=== PATIENT | female | born 1945 | race Caucasian/White ===

== ENCOUNTER 2020-10-20 20:56 | Inpatient (IN) | payer MEDICARE, OTHER, SELFPAY ==
[2020-10-20 21:12] VITALS: BP 120/50; PULSE 101; RESP 22; TEMP 38.9; O2SAT 86; BMI 33.7
--- NOTE | 2020-10-20 21:13 | XR_ITS ---
EXAMINATION: XR CHEST CLINICAL INFORMATION: Shortness of breath. COVID positive. COMPARISON: Chest radiograph dated 03/30/2015. TECHNIQUE: Frontal view of the chest was obtained. FINDINGS: Mild interstitial prominence with minimal patchy left lower lobe airspace opacities. No pleural effusion or pneumothorax. Stable cardiomediastinal silhouette. No acute osseous abnormality. XR/XR chest 1V IMPRESSION: Mild interstitial prominence with minimal patchy left lower lobe airspace opacities. Findings can be seen in the setting of an infectious or inflammatory process.
--- NOTE | 2020-10-20 21:13 | ECG_ITS ---
Test Reason : SHORTNESS OF BREATH Blood Pressure : / mmHG Vent. Rate : 096 BPM Atrial Rate : 096 BPM P-R Int : 134 ms QRS Dur : 082 ms QT Int : 326 ms P-R-T Axes : 046 027 042 degrees QTc Int : 411 ms Normal sinus rhythm Normal ECG No previous ECGs available Referred By: [place] [facility] Electronically Signed By:RICHARD RUBIO
--- NOTE | 2020-10-20 21:13 | ED.SOB ---
HPI - SOB/Dyspnea General Chief Complaint: Dyspnea Stated Complaint: Sob Time Seen by Provider: 10/20/20 21:12 Source: patient Mode of arrival: ambulatory Limitations: no limitations History of Present Illness HPI Narrative: Patient with no significant lung issues nonsmoker for COVID positive for last 8 days since yesterday been complaining of increased shortness of breath today when she walks her pulse ox dropped to low 80s called her primary care doctor who sent her here. Patient not eating well for last few days feel weak and tired occasional cough no abdominal pain no nausea no vomiting no diarrhea had fever off and on at home on arrival patient temperature was 102.1 degrees and saturation was 86% on room air MD elicited complaint: shortness of breath and cough Onset (ago): day(s) (8) Timing: constant and progressively worsening Severity: moderate Exacerbating factors: exertion Relieving factors: oxygen Associated symptoms: fever and cough Related Data Home Medications Medication Instructions Recorded Confirmed aspirin 1 tab PO BID 10/21/20 10/21/20 levothyroxine 1 tab PO BEDTIME 10/21/20 10/21/20 liothyronine 1 tab PO DAILY 10/21/20 10/21/20 pantoprazole 1 tab PO DAILY 10/21/20 10/21/20 Allergies Allergy/AdvReac Type Severity Reaction Status Date / Time No Known Drug Allergies Allergy Unknown UNKNOWN Unverified 07/26/20 18:53 Review of Systems Review of Systems: REVIEW OF SYSTEMS: Pertinent positives and negatives are stated above in the history. GEN: fver+. no chills, fatigue ++ HEENT: no nasal congestion, sore throat, ear pain NEURO: no headache, dizziness, focal weakness PULM: Cough +, shortness of breath + CV: no chest pain, palpitations, LE edema ABD: no abdominal pain, nausea, vomiting, diarrhea : no dysuria, urgency, frequency SKIN: no rash ROS otherwise negative x 10 PMFSH Past Medical History Medical History Hypothyroid Surgical History History of appendectomy S/P hip replacement Social History Social History Alcohol intake: never Smoking Status: Never smoker Use of substances other than those prescribed or required for medical reasons: No Advance Directives: No Advance Directives Information Provided: No Physical Exam Vital Signs: Vital Signs: Last Vital Signs Temp 100.8 F H 10/21/20 00:35 Pulse 88 10/21/20 00:35 Resp 21 H 10/21/20 00:35 BP 102/37 L 10/21/20 00:35 Pulse Ox 94 10/21/20 00:35 Body Mass Index 33.7 VITAL SIGNS: Reviewed. GENERAL: Well developed, well nourished, in no acute distress. Febrile temperature of 102.1 degrees HEAD: Normocephalic/atraumatic, EYES: PERRLA No pallor/icterus noted OROPHARYNX: Oral mucosa moist no oral lesions NECK: Supple, no adenopathy LUNGS: Normal breath sounds. No adventitious sounds or accessory muscle use CARDIOVASCULAR: Regular rate and rhythm without noted murmurs, no JVD or lower extremity edema. ABDOMEN: Soft, non-tender, non-distended with normal bowel sounds. No rigidity. No guarding. No palpable masses or hernias noted MUSCULOSKELETAL: No tenderness, deformities, EXTREMITIES: No cyanosis or edema. SKIN: no rashes, ulcerations, jaundice, pallor, or petechiae NEUROLOGIC: Alert and oriented x 3. Strength and sensation to light touch were grossly intact normal speech MDM - SOB/Dyspnea MDM Narrative Medical decision making narrative: Patient COVID positive day 8 coming here for increased shortness of breath saturating 86% on room air chest x-ray showed slight infiltrates patient had a fever of 102.1 will admit patient for IV steroids oxygen therapy and will give a pedicle course of antibiotic Rocephin and doxycycline Medical Records Attestation: I reviewed the patient's medical records. Lab Data Attestation: I reviewed the patient's lab results. Result diagrams: 10/20/20 22:10 10/20/20 22:10 Labs: Lab Results 10/20/20 10/20/20 10/20/20 Range/Units 22:09 22:09 22:09 WBC (4.8-10.8) X10*3/uL RBC (4.20-5.50) X10*6/uL Hgb (12.0-16.0) g/dl Hct (37-47) % MCV (80-98) fL MCH (27.0-33.0) pg MCHC (31.0-35.0) g/dl RDW (11.0-16.0) % Plt Count (160-400) X10*3/uL MPV (9.4-12.3) fL Immature Gran % (Auto) (0.0-0.4) % Neut % (Auto) (45-73) % Lymph % (Auto) (20-40) % [place] % (Auto) (2-11) % Eos % (Auto) (0-4) % Baso % (Auto) (0-2) % Lymph # (Auto) (1.2-4.9) X10*3/uL [place] # (Auto) (0.1-1.2) X10*3/uL Eos # (Auto) (0.0-0.4) X10*3/uL Baso # (Auto) (0.0-0.2) X10*3/uL Abs Immat Gran (auto) (0.00-0.03) X10*3/uL Absolute Neuts (auto) (2.0-8.3) X10*3/uL Absolute Nucleated RBC (0.0-0.012) X10*3/uL Nucleated RBC % (auto) (0.0-0.2) /100WBC PT 12.1 (10.8-13.0) SEC INR 1.0 (0.9-1.1) D-Dimer NG/ML VBG pH (7.32-7.43) VBG pCO2 mmhg VBG pO2 mmhg VBG HCO3 mmol/L VBG O2 Saturation % VBG Base Excess mmol/L Sodium (135-145) mmol/L Potassium (3.3-5.1) mmol/l Chloride (96-108) mmol/L Carbon Dioxide (22-29) mmol/L Anion Gap (12-20) BUN (9-16) mg/dL Creatinine (0.5-1.4) mg/dL Estim Creat Clear Calc Estimated GFR Random Glucose (60-115) mg/dL Lactic Acid 0.9 (0.5-2.0) mmol/L Calcium (8.4-10.2) mg/dL Ferritin (10-250) ng/mL Total Bilirubin (0.0-1.0) mg/dL Direct Bilirubin (0.0-0.5) mg/dL AST (5-31) U/L ALT (0-31) U/L Alkaline Phosphatase (39-117) U/L Lactate Dehydrogenase (122-220) U/L Troponin I High Sens 3.6 (<3.5-17.0) ng/L B-Natriuretic Peptide (<100) pg/mL Total Protein (6.5-8.0) g/dL Albumin (3.5-5.0) g/dL Coronavirus (PCR) (Negative) Influenza Type A (PCR) (Negative) Influenza Type B (PCR) (Negative) RSV RNA Qual (PCR) (Negative) 10/20/20 10/20/20 10/20/20 Range/Units 22:09 22:09 22:09 WBC (4.8-10.8) X10*3/uL RBC (4.20-5.50) X10*6/uL Hgb (12.0-16.0) g/dl Hct (37-47) % MCV (80-98) fL MCH (27.0-33.0) pg MCHC (31.0-35.0) g/dl RDW (11.0-16.0) % Plt Count (160-400) X10*3/uL MPV (9.4-12.3) fL Immature Gran % (Auto) (0.0-0.4) % Neut % (Auto) (45-73) % Lymph % (Auto) (20-40) % [place] % (Auto) (2-11) % Eos % (Auto) (0-4) % Baso % (Auto) (0-2) % Lymph # (Auto) (1.2-4.9) X10*3/uL [place] # (Auto) (0.1-1.2) X10*3/uL Eos # (Auto) (0.0-0.4) X10*3/uL Baso # (Auto) (0.0-0.2) X10*3/uL Abs Immat Gran (auto) (0.00-0.03) X10*3/uL Absolute Neuts (auto) (2.0-8.3) X10*3/uL Absolute Nucleated RBC (0.0-0.012) X10*3/uL Nucleated RBC % (auto) (0.0-0.2) /100WBC PT (10.8-13.0) SEC INR (0.9-1.1) D-Dimer 303 NG/ML VBG pH (7.32-7.43) VBG pCO2 mmhg VBG pO2 mmhg VBG HCO3 mmol/L VBG O2 Saturation % VBG Base Excess mmol/L Sodium (135-145) mmol/L Potassium (3.3-5.1) mmol/l Chloride (96-108) mmol/L Carbon Dioxide (22-29) mmol/L Anion Gap (12-20) BUN (9-16) mg/dL Creatinine (0.5-1.4) mg/dL Estim Creat Clear Calc Estimated GFR Random Glucose (60-115) mg/dL Lactic Acid (0.5-2.0) mmol/L Calcium (8.4-10.2) mg/dL Ferritin 442 H (10-250) ng/mL Total Bilirubin (0.0-1.0) mg/dL Direct Bilirubin (0.0-0.5) mg/dL AST (5-31) U/L ALT (0-31) U/L Alkaline Phosphatase (39-117) U/L Lactate Dehydrogenase 251 H (122-220) U/L Troponin I High Sens (<3.5-17.0) ng/L B-Natriuretic Peptide < 10 (<100) pg/mL Total Protein (6.5-8.0) g/dL Albumin (3.5-5.0) g/dL Coronavirus (PCR) (Negative) Influenza Type A (PCR) (Negative) Influenza Type B (PCR) (Negative) RSV RNA Qual (PCR) (Negative) 10/20/20 10/20/20 10/20/20 Range/Units 22:10 22:10 22:11 WBC 4.6 L (4.8-10.8) X10*3/uL RBC 4.61 (4.20-5.50) X10*6/uL Hgb 13.7 (12.0-16.0) g/dl Hct 42.3 (37-47) % MCV 91.8 (80-98) fL MCH 29.7 (27.0-33.0) pg MCHC 32.4 (31.0-35.0) g/dl RDW 14.4 (11.0-16.0) % Plt Count 155 L (160-400) X10*3/uL MPV 9.8 (9.4-12.3) fL Immature Gran % (Auto) 0.2 (0.0-0.4) % Neut % (Auto) 59.0 (45-73) % Lymph % (Auto) 26.1 (20-40) % [place] % (Auto) 14.7 H (2-11) % Eos % (Auto) 0.0 (0-4) % Baso % (Auto) 0.0 (0-2) % Lymph # (Auto) 1.2 (1.2-4.9) X10*3/uL [place] # (Auto) 0.7 (0.1-1.2) X10*3/uL Eos # (Auto) 0.0 (0.0-0.4) X10*3/uL Baso # (Auto) 0.0 (0.0-0.2) X10*3/uL Abs Immat Gran (auto) 0.01 (0.00-0.03) X10*3/uL Absolute Neuts (auto) 2.7 (2.0-8.3) X10*3/uL Absolute Nucleated RBC 0.000 (0.0-0.012) X10*3/uL Nucleated RBC % (auto) 0.0 (0.0-0.2) /100WBC PT (10.8-13.0) SEC INR (0.9-1.1) D-Dimer NG/ML VBG pH (7.32-7.43) VBG pCO2 mmhg VBG pO2 mmhg VBG HCO3 mmol/L VBG O2 Saturation % VBG Base Excess mmol/L Sodium 137 (135-145) mmol/L Potassium 4.0 (3.3-5.1) mmol/l Chloride 102 (96-108) mmol/L Carbon Dioxide 27 (22-29) mmol/L Anion Gap 12 (12-20) BUN 15 (9-16) mg/dL Creatinine 1.06 (0.5-1.4) mg/dL Estim Creat Clear Calc 51.3 Estimated GFR 51 Random Glucose 116 H (60-115) mg/dL Lactic Acid (0.5-2.0) mmol/L Calcium 8.2 L (8.4-10.2) mg/dL Ferritin (10-250) ng/mL Total Bilirubin 0.3 (0.0-1.0) mg/dL Direct Bilirubin 0.2 (0.0-0.5) mg/dL AST 31 (5-31) U/L ALT 20 (0-31) U/L Alkaline Phosphatase 61 (39-117) U/L Lactate Dehydrogenase (122-220) U/L Troponin I High Sens (<3.5-17.0) ng/L B-Natriuretic Peptide (<100) pg/mL Total Protein 7.0 (6.5-8.0) g/dL Albumin 4.0 (3.5-5.0) g/dL Coronavirus (PCR) POSITIVE A (Negative) Influenza Type A (PCR) NEGATIVE (Negative) Influenza Type B (PCR) NEGATIVE (Negative) RSV RNA Qual (PCR) NEGATIVE (Negative) 10/20/20 Range/Units 22:55 WBC (4.8-10.8) X10*3/uL RBC (4.20-5.50) X10*6/uL Hgb (12.0-16.0) g/dl Hct (37-47) % MCV (80-98) fL MCH (27.0-33.0) pg MCHC (31.0-35.0) g/dl RDW (11.0-16.0) % Plt Count (160-400) X10*3/uL MPV (9.4-12.3) fL Immature Gran % (Auto) (0.0-0.4) % Neut % (Auto) (45-73) % Lymph % (Auto) (20-40) % [place] % (Auto) (2-11) % Eos % (Auto) (0-4) % Baso % (Auto) (0-2) % Lymph # (Auto) (1.2-4.9) X10*3/uL [place] # (Auto) (0.1-1.2) X10*3/uL Eos # (Auto) (0.0-0.4) X10*3/uL Baso # (Auto) (0.0-0.2) X10*3/uL Abs Immat Gran (auto) (0.00-0.03) X10*3/uL Absolute Neuts (auto) (2.0-8.3) X10*3/uL Absolute Nucleated RBC (0.0-0.012) X10*3/uL Nucleated RBC % (auto) (0.0-0.2) /100WBC PT (10.8-13.0) SEC INR (0.9-1.1) D-Dimer NG/ML VBG pH 7.34 (7.32-7.43) VBG pCO2 49 mmhg VBG pO2 29 mmhg VBG HCO3 26 mmol/L VBG O2 Saturation 50.7 % VBG Base Excess -0.6 mmol/L Sodium (135-145) mmol/L Potassium (3.3-5.1) mmol/l Chloride (96-108) mmol/L Carbon Dioxide (22-29) mmol/L Anion Gap (12-20) BUN (9-16) mg/dL Creatinine (0.5-1.4) mg/dL Estim Creat Clear Calc Estimated GFR Random Glucose (60-115) mg/dL Lactic Acid (0.5-2.0) mmol/L Calcium (8.4-10.2) mg/dL Ferritin (10-250) ng/mL Total Bilirubin (0.0-1.0) mg/dL Direct Bilirubin (0.0-0.5) mg/dL AST (5-31) U/L ALT (0-31) U/L Alkaline Phosphatase (39-117) U/L Lactate Dehydrogenase (122-220) U/L Troponin I High Sens (<3.5-17.0) ng/L B-Natriuretic Peptide (<100) pg/mL Total Protein (6.5-8.0) g/dL Albumin (3.5-5.0) g/dL Coronavirus (PCR) (Negative) Influenza Type A (PCR) (Negative) Influenza Type B (PCR) (Negative) RSV RNA Qual (PCR) (Negative) Imaging Data CT scan - chest: Attestation: I personally reviewed and interpreted this imaging study as follows: Radiologist's impression: CT/CT angio chest PE protocol IMPRESSION: * No evidence of pulmonary embolism. * There are bilateral peripherally predominant patchy groundglass opacities, pattern and appearance of which is compatible with COVID pneumonitis. * Moderate emphysema. * Cholelithiasis. ECG Data Attestation: I personally reviewed and interpreted this ECG as follows: Interpretation: Normal sinus rhythm with ventricular rate 96 normal intervals axis no acute ST T wave changes impression normal EKG Discharge Plan Discharge Clinical Impression: COVID-19, Hypoxia Patient Disposition: Admitted As Inpatient
[2020-10-20 22:21] LABS: MANUAL DIFF FLAG NO
[2020-10-20 22:23] LABS: Hematocrit 42.3 % (37-47); Hemoglobin 13.7 g/dl (12.0-16.0); Imm Gran Abs Auto 0.01 X10*3/uL (0.00-0.03); Imm Gran Pct Auto 0.2 % (0.0-0.4); Lymphocytes Absolute Auto 1.2 X10*3/uL (1.2-4.9); Lymphocytes Percent Auto 26.1 % (20-40); Mean Corpuscular HGB Conc 32.4 g/dl (31.0-35.0); Mean Corpuscular Hemoglobin 29.7 pg (27.0-33.0); Mean Corpuscular Volume 91.8 fL (80-98); Mean Platelet Volume 9.8 fL (9.4-12.3); Monocytes Absolute Auto 0.7 X10*3/uL (0.1-1.2); Monocytes Percent Auto 14.7 % (2-11); Neutrophils Absolute Auto 2.7 X10*3/uL (2.0-8.3); Platelet Count 155 X10*3/uL (160-400); Red Blood Count 4.61 X10*6/uL (4.20-5.50); Red Cell Distribution Width 14.4 % (11.0-16.0); White Blood Count 4.6 X10*3/uL (4.8-10.8)
[2020-10-20 22:31] LABS: Prothrombin Time 12.1 SEC (10.8-13.0)
[2020-10-20 22:34] LABS: D Dimer 303 NG/ML
[2020-10-20 22:41] LABS: Lactic Acid 0.9 mmol/L (0.5-2.0)
[2020-10-20 22:43] LABS: Lactate Dehydrogenase 251 U/L (122-220)
[2020-10-20 22:46] LABS: Alanine Aminotransferase 20 U/L (0-31); Alkaline Phosphatase 61 U/L (39-117); Anion Gap 12 (12-20); Aspartate Amino Transferase 31 U/L (5-31); Bilirubin Direct 0.2 mg/dL (0.0-0.5); Bilirubin Total 0.3 mg/dL (0.0-1.0); Blood Urea Nitrogen 15 mg/dL (9-16); Calcium 8.2 mg/dL (8.4-10.2); Carbon Dioxide 27 mmol/L (22-29); Chloride 102 mmol/L (96-108); Creatinine Clr Calc Pharmacy 51.3; Estimated Glomerular Filt Rate 51; Glucose Random 116 mg/dL (60-115); Sodium 137 mmol/L (135-145)
--- NOTE | 2020-10-20 22:48 | PC.NURSE ---
PT AMBULATED TO BR ~10-15 FT AWAY W/ EVEN STEADY GAIT USING CANE, UPON RETURN TO PT ROOM SPO2 DROPPED TO 79% ON RA, PLACED BACK ON 4L O2 NC
[2020-10-20 22:52] LABS: Troponin-I High Sensitivity 3.6 ng/L (<3.5-17.0)
[2020-10-20 22:53] LABS: B Type Natriuretic Peptide < 10 pg/mL (<100)
[2020-10-20] MEDS: Acetaminophen 325 MG TABLET 650 MG PO (22:57)
[2020-10-20] MEDS: dexAMETHasone sod phosphate 4 MG/ML VIAL 10 MG IVPUSH (22:57)
[2020-10-20 22:59] LABS: Influenza A PCR NEGATIVE (Negative); Influenza B PCR NEGATIVE (Negative); Resp Syncy Virus RNA Qual PCR NEGATIVE (Negative)
[2020-10-20 23:06] LABS: Base Excess VBG -0.6 mmol/L; HCO3 VBG 26 mmol/L; Oxygen Saturation VBG 50.7 %; PCO2 VBG 49 mmhg; PO2 VBG 29 mmhg; pH VBG 7.34 (7.32-7.43)
[2020-10-20 23:07] LABS: Ferritin 442 ng/mL (10-250)
[2020-10-20 23:09] LABS: SARS COV2 PCR INHOUSE POSITIVE (Negative)
[2020-10-21] VITALS (7 sets, daily range): BP systolic 102–139; BP diastolic 37–79; PULSE 70–88; RESP 12–24; TEMP 36–38.2; O2SAT 90–94
--- NOTE | 2020-10-21 | CT_ITS ---
EXAMINATION: CT ANGIOGRAM OF THE CHEST WITH AND WITHOUT CONTRAST (CT PULMONARY ANGIOGRAM FOR PE) CLINICAL INFORMATION: Reason for Exam COVID-19 infection? PE COMPARISON: Chest x-ray dated 10/20/2020 TECHNIQUE: Prior to contrast administration, noncontrast localization images were obtained. Subsequently, multidetector volumetric imaging was performed from the thoracic inlet to below the diaphragms following the administration of 80 mL Omnipaque 350 intravenous contrast. No contrast reaction reported Sagittal, coronal, and MIP oblique sagittal reformatted images were obtained on the CT workstation, uploaded to PACS, and reviewed. This CT examination was performed using dose optimization techniques as appropriate, variously including the following: *Automated exposure control *Adjustment of mA and/or kV according to patient size (this includes techniques or standardized protocols for targeted exams where dose is matched to indication/reason for exam; i.e. extremities or head) *Use of iterative reconstruction technique Total exam dose-length product mGy-cm FINDINGS: QUALITY OF STUDY/CONTRAST BOLUS: Satisfactory. PULMONARY ARTERIES: No central or segmental pulmonary emboli. THORACIC AORTA: No aneurysm or dissection. LUNG: Moderate emphysema. Patchy peripherally predominant groundglass opacities present throughout both lungs. Dependent atelectasis. PLEURA: No pleural effusion or pneumothorax. MEDIASTINUM: Normal heart size. No pericardial effusion. No hilar or mediastinal lymphadenopathy. No evidence of septal bowing or right heart strain. No reflux of contrast into the hepatic veins to suggest elevated right heart pressures. CHEST WALL/AXILLA: No axillary or internal mammary lymphadenopathy. OSSEOUS STRUCTURES: No acute or suspicious osseous abnormality. UPPER ABDOMEN: Cholelithiasis. CT/CT angio chest PE protocol IMPRESSION: * No evidence of pulmonary embolism. * There are bilateral peripherally predominant patchy groundglass opacities, pattern and appearance of which is compatible with COVID pneumonitis. * Moderate emphysema. * Cholelithiasis. VTE: negative
[2020-10-21] MEDS: iohexoL 350 MG/ML 100 ML INFUS..BTL 65 ML IV (00:28)
[2020-10-21] MEDS: cefTRIAXone sodium 1 GM in 0.9 % Sodium Chloride 50 ML IV (00:34)
--- NOTE | 2020-10-21 00:52 | P.HPHOSP_ITS ---
History of Present Illness Date of Service: 10/21/20 Chief Complaint: SOB / Malaise 75 y/o female with PMHX of Hypothyroidism and GERD who presented from home due to feeling malaise . Per history provided by the patient, 1 week ago was diagnosed of covid infection and since then has been isolated at home. Patient reports that for the past 2 days has not been feeling well. C/o Malaise, generalized weakness and feeling on and off episodes of headaches that started today as well as occasional dry cough. Patient denies any chest pain, SOB, nausea or vomiting. Patient has an oxymeter at home and noted today that her oxygen levels were in the 80's for what decided to come to the ED. On presentation patient was noted to be tachycardic, tachypneic with on and off episodes of fever of 102 and 100.8, Oxygen level of 86% on room air, LDH of 351, ferritin 442, CXR with patchy airspace opacities and Covid +. Patient was given one dose of Rocephin, Doxy and IV steroids and decision for admission was given. Patient was seen and examined at the bedside, laying down in bed in no acute distress. ROS as above otherwise negative. Physical exam unremarkable. PMHX: hypothyroidism and GERD PSX; pubic and sacral fracture, L4-5 fracture Toxic habits; None Review of Systems Constitutional: Constitutional: Reports malaise and Reports weakness Respiratory: Respiratory: Reports cough Neurologic: Reports weakness [facility] Medical History Hypothyroid Functional capacity: independent ambulation Surgical History History of appendectomy S/P hip replacement Social History Alcohol intake: never Smoking Status: Never smoker Use of substances other than those prescribed or required for medical reasons: No Advance Directives: No Advance Directives Information Provided: No Meds Allergies Allergy/AdvReac Type Severity Reaction Status Date / Time No Known Drug Allergies Allergy Unknown UNKNOWN Unverified 07/26/20 18:53 Home Medications Medication Instructions Recorded Confirmed Type aspirin 1 tab PO BID 10/21/20 10/21/20 History levothyroxine 1 tab PO BEDTIME 10/21/20 10/21/20 History liothyronine 1 tab PO DAILY 10/21/20 10/21/20 History pantoprazole 1 tab PO DAILY 10/21/20 10/21/20 History Physical Exam Vital Signs and Narrative: Vital Signs: Last Vital Signs Temp 100.8 F H 10/21/20 00:35 Pulse 88 10/21/20 00:35 Resp 21 H 10/21/20 00:35 BP 102/37 L 10/21/20 00:35 Pulse Ox 94 10/21/20 00:35 Body Mass Index 33.7 Const: General: cooperative, comfortable and no acute distress Orienta tion/consciousness: oriented to person, oriented to place and oriented to time HENMT: Head: Yes normal to inspection Eyes: General: appearance normal, both eyes and all related structures Neck: Yes normal visual inspection Chest: Chest palpation & inspection: normal inspection of the chest Resp: Effort & Inspection: normal respiratory effort Auscultation: clear to auscultation bilaterally Cardio: Jugular venous distension: no JVD Rate: regular rate Rhythm: regular rhythm Heart sounds: S1 normal heart sound present and S2 normal heart sound present GI: Inspection: Yes normal to inspection Skin: General skin exam: no rashes or lesions noted Neuro: General: oriented to person, oriented to place and oriented to time Cognition (Neuro): normal cognition Extrem: General: Yes normal to inspection Results Labs CBC and Chem 7: 10/20/20 22:10 10/20/20 22:10 Labs: Laboratory Results - last 24 hr 10/20/20 10/20/20 10/20/20 22:09 22:09 22:09 MCV MCH MCHC RDW Plt Count MPV Immature Gran % (Auto) Neut % (Auto) Lymph % (Auto) [place] % (Auto) Eos % (Auto) Baso % (Auto) Lymph # (Auto) [place] # (Auto) Eos # (Auto) Baso # (Auto) Abs Immat Gran (auto) Absolute Neuts (auto) Absolute Nucleated RBC Nucleated RBC % (auto) PT 12.1 INR 1.0 D-Dimer VBG pH VBG pCO2 VBG pO2 VBG HCO3 VBG O2 Saturation VBG Base Excess Anion Gap Estim Creat Clear Calc Estimated GFR Random Glucose Lactic Acid 0.9 Calcium Ferritin Total Bilirubin Direct Bilirubin AST ALT Alkaline Phosphatase Lactate Dehydrogenase Troponin I High Sens 3.6 B-Natriuretic Peptide Total Protein Albumin Coronavirus (PCR) Influenza Type A (PCR) Influenza Type B (PCR) RSV RNA Qual (PCR) 10/20/20 10/20/20 10/20/20 22:09 22:09 22:09 MCV MCH MCHC RDW Plt Count MPV Immature Gran % (Auto) Neut % (Auto) Lymph % (Auto) [place] % (Auto) Eos % (Auto) Baso % (Auto) Lymph # (Auto) [place] # (Auto) Eos # (Auto) Baso # (Auto) Abs Immat Gran (auto) Absolute Neuts (auto) Absolute Nucleated RBC Nucleated RBC % (auto) PT INR D-Dimer 303 VBG pH VBG pCO2 VBG pO2 VBG HCO3 VBG O2 Saturation VBG Base Excess Anion Gap Estim Creat Clear Calc Estimated GFR Random Glucose Lactic Acid Calcium Ferritin 442 H Total Bilirubin Direct Bilirubin AST ALT Alkaline Phosphatase Lactate Dehydrogenase 251 H Troponin I High Sens B-Natriuretic Peptide < 10 Total Protein Albumin Coronavirus (PCR) Influenza Type A (PCR) Influenza Type B (PCR) RSV RNA Qual (PCR) 10/20/20 10/20/20 10/20/20 22:10 22:10 22:11 MCV 91.8 MCH 29.7 MCHC 32.4 RDW 14.4 Plt Count 155 L MPV 9.8 Immature Gran % (Auto) 0.2 Neut % (Auto) 59.0 Lymph % (Auto) 26.1 [place] % (Auto) 14.7 H Eos % (Auto) 0.0 Baso % (Auto) 0.0 Lymph # (Auto) 1.2 [place] # (Auto) 0.7 Eos # (Auto) 0.0 Baso # (Auto) 0.0 Abs Immat Gran (auto) 0.01 Absolute Neuts (auto) 2.7 Absolute Nucleated RBC 0.000 Nucleated RBC % (auto) 0.0 PT INR D-Dimer VBG pH VBG pCO2 VBG pO2 VBG HCO3 VBG O2 Saturation VBG Base Excess Anion Gap 12 Estim Creat Clear Calc 51.3 Estimated GFR 51 Random Glucose 116 H Lactic Acid Calcium 8.2 L Ferritin Total Bilirubin 0.3 Direct Bilirubin 0.2 AST 31 ALT 20 Alkaline Phosphatase 61 Lactate Dehydrogenase Troponin I High Sens B-Natriuretic Peptide Total Protein 7.0 Albumin 4.0 Coronavirus (PCR) POSITIVE A Influenza Type A (PCR) NEGATIVE Influenza Type B (PCR) NEGATIVE RSV RNA Qual (PCR) NEGATIVE 10/20/20 22:55 MCV MCH MCHC RDW Plt Count MPV Immature Gran % (Auto) Neut % (Auto) Lymph % (Auto) [place] % (Auto) Eos % (Auto) Baso % (Auto) Lymph # (Auto) [place] # (Auto) Eos # (Auto) Baso # (Auto) Abs Immat Gran (auto) Absolute Neuts (auto) Absolute Nucleated RBC Nucleated RBC % (auto) PT INR D-Dimer VBG pH 7.34 VBG pCO2 49 VBG pO2 29 VBG HCO3 26 VBG O2 Saturation 50.7 VBG Base Excess -0.6 Anion Gap Estim Creat Clear Calc Estimated GFR Random Glucose Lactic Acid Calcium Ferritin Total Bilirubin Direct Bilirubin AST ALT Alkaline Phosphatase Lactate Dehydrogenase Troponin I High Sens B-Natriuretic Peptide Total Protein Albumin Coronavirus (PCR) Influenza Type A (PCR) Influenza Type B (PCR) RSV RNA Qual (PCR) Imaging Radiologist's Impressions: Impressions Chest X-Ray 10/20/20 21:13 IMPRESSION: Mild interstitial prominence with minimal patchy left lower lobe airspace opacities. Findings can be seen in the setting of an infectious or inflammatory process. Chest CTA 10/21/20 00:00 IMPRESSION: * No evidence of pulmonary embolism. * There are bilateral peripherally predominant patchy groundglass opacities, pattern and appearance of which is compatible with COVID pneumonitis. * Moderate emphysema. * Cholelithiasis. VTE: negative Assessment and Plan (1) COVID-19: Status: Acute Isolation Continue with Rocephin for gram neg coverage Continue with Doxycycline for atypical coverage Folllow up Bcx and Respiratory panel Continue with O2 therapy and titrate off as tolerated Continue with IV streroids and taper off as tolerated Keep MAP > 65 mmHg continue with IV hydration Infectious disease consult in the am (2) Sepsis: Status: Acute plan as above (3) Hypoxia: Status: Acute plan as above (4) GERD (gastroesophageal reflux disease): Status: Acute continue with PPI home dose (5) Hypothyroid: Status: Acute continue with home meds
[2020-10-21] MEDS: Doxycycline Hyclate 100 MG in 0.9 % Sodium Chloride 250 ML 166.67 MG IV ×2 (01:24→21:36)
[2020-10-21] MEDS: Heparin Sodium,Porcine 5,000 UNIT/ML VIAL 5000 UNIT SUBCUT ×3 (05:21→20:46)
[2020-10-21] MEDS: 0.9 % Sodium Chloride 1,000 ML 75 ML IVCONT (05:23)
[2020-10-21 05:54] LABS: MANUAL DIFF FLAG NO
[2020-10-21 05:59] LABS: Imm Gran Abs Auto 0.01 X10*3/uL (0.00-0.03); Imm Gran Pct Auto 0.3 % (0.0-0.4); Lymphocytes Absolute Auto 0.8 X10*3/uL (1.2-4.9); Lymphocytes Percent Auto 23.7 % (20-40); Mean Corpuscular HGB Conc 32.5 g/dl (31.0-35.0); Mean Corpuscular Hemoglobin 29.6 pg (27.0-33.0); Mean Corpuscular Volume 91.1 fL (80-98); Mean Platelet Volume 9.9 fL (9.4-12.3); Monocytes Absolute Auto 0.2 X10*3/uL (0.1-1.2); Monocytes Percent Auto 5.3 % (2-11); Neutrophils Absolute Auto 2.3 X10*3/uL (2.0-8.3); Neutrophils Percent Auto 70.7 % (45-73); Platelet Count 149 X10*3/uL (160-400); Red Blood Count 4.39 X10*6/uL (4.20-5.50); Red Cell Distribution Width 14.2 % (11.0-16.0); White Blood Count 3.2 X10*3/uL (4.8-10.8)
--- NOTE | 2020-10-21 06:17 | PC.NURSE ---
pt lives with son. both have been dx for covid19 for approximately 1 week. pt states that her symptoms have been worsening and that she checked home sao2 which was 88%. pt is pleasant/sensorium intact. has pale complexion and 1+ edema of lower legs. skin surfaces are intact. pt is maintained on supplemental o2 at 4lpm. she has quick. breath sounds diminished throughout. fine bibasilar crackles audible. pt has dry nonproductive cough. ecg displays sr. hemodynamically stable. abdomen benign. pt has issues with urinary incontinence. purewick device applied. pt placed on airborne/droplet precautions.
[2020-10-21 06:25] LABS: Anion Gap 15 (12-20); Blood Urea Nitrogen 15 mg/dL (9-16); Calcium 7.8 mg/dL (8.4-10.2); Carbon Dioxide 21 mmol/L (22-29); Chloride 106 mmol/L (96-108); Estimated Glomerular Filt Rate 58; Glucose Random 158 mg/dL (60-115); Potassium 4.6 mmol/l (3.3-5.1); Sodium 137 mmol/L (135-145)
--- NOTE | 2020-10-21 09:50 | HO.PM.IMPN ---
Subjective Subjective Date of Service: 10/21/20 Interval History: minimal sob Cardiovascular Cardiovascular: Reports no additional cardiovascular complaints Gastrointestinal Gastrointestinal: Reports no additional gastrointestinal complaints Physical Exam Vital Signs: Vital Signs: Last Vital Signs Temp 98.1 F 10/21/20 03:42 Pulse 88 10/21/20 04:28 Resp 24 H 10/21/20 04:28 BP 139/79 10/21/20 04:28 Pulse Ox 90 L 10/21/20 04:28 Body Mass Index 33.7 General: AO X 3, no acute distress Resp: CTA bilateral CVS: S1,S2,RRR GI: soft, non tender, non distended Neuro: motor grossly intact Psych: appropriate affect Objective Data Current Medications Generic Name Dose Route Start Last Admin Trade Name Freq PRN Reason Stop Dose Admin Aspirin 325 mg 10/21/20 09:00 Aspirin Enteric Coated 325 Mg Tablet. PO BID ARAM Dexamethasone Sodium Phosphate 6 mg 10/21/20 09:00 Dexamethasone Sod Phosphate 4 Mg/Ml Vial IVPUSH DAILY [facility] Heparin Sodium (Porcine) 5,000 unit 10/21/20 04:00 10/21/20 05:21 Heparin Sodium,Porcine 5,000 Unit/Ml Vial SUBCUT 5,000 unit Q8H ARAM Administration Ceftriaxone Sodium 1 gm/ 50 mls @ 100 mls/hr 10/21/20 23:00 Sodium Chloride IV Q24H ARAM Doxycycline Hyclate 100 mg/ 250 mls @ 166.67 mls/hr 10/21/20 22:00 Sodium Chloride IV Q24H [facility] Levothyroxine Sodium 150 mcg 10/21/20 21:00 Levothyroxine Sodium 150 Mcg Tablet PO BEDTIME [facility] Liothyronine Sodium 25 mcg 10/21/20 09:00 Liothyronine Sodium 25 Mcg Tablet PO DAILY [facility] Omeprazole 20 mg 10/21/20 09:00 Omeprazole 20 Mg Capsule. PO DAILY [facility] Labs CBC & Chem 7: 10/21/20 05:24 10/21/20 05:24 Assessment and Plan (1) Sepsis: Status: Acute (2) COVID-19: Status: Acute (3) Hypothyroid: Status: Acute (4) GERD (gastroesophageal reflux disease): Status: Acute (5) Acute respiratory failure with hypoxia: Status: Acute Assessment and Plan: 75-year-old female presented with shortness of breath Viral sepsis present on admission secondary to COVID pneumonia complicated by acute hypoxic respiratory failure Decadron, ceftriaxone, wean O2 as tolerated, monitor prognostic labs Hypothyroid Synthroid GERD PPI
--- NOTE | 2020-10-21 10:35 | MHC.CM.PN ---
pt lives alone in her condo. she reports she is independent in her care. she does have a daughter that lives in [facility] and can help her c any needs she may have. this will include a ride home at dc. pt is amenable to have [facility] provide svcs at dc as pt wants to dc home . she has requested to have ref. made to [facility] , this has been done. dc plan is home c [facility] for nsg. cm to cont. to follow.
--- NOTE | 2020-10-21 11:01 | PC.NURSE ---
nurse to nurse report given to [facility]uevara
[2020-10-21] MEDS: Aspirin Enteric Coated 325 MG TABLET.DR PO ×2 (11:22→20:46)
[2020-10-21] MEDS: Omeprazole 20 MG CAPSULE.DR PO (11:22)
[2020-10-21] MEDS: dexAMETHasone sod phosphate 4 MG/ML VIAL 6 MG IVPUSH (11:22)
[2020-10-21] MEDS: Liothyronine Sodium 25 MCG TABLET PO (11:22)
[2020-10-21 11:55] LABS: Adenovirus PCR Not Detected (Not Detect.); Bordetella parapertussis PCR Not Detected (Not Detect.); Bordetella pertussis PCR Not Detected (Not Detect.); Chlamydia pneumoniae PCR Not Detected (Not Detect.); Coronavirus 229E PCR Not Detected (Not Detect.); Coronavirus HKU1 PCR Not Detected (Not Detect.); Coronavirus NL63 PCR Not Detected (Not Detect.); Coronavirus OC43 PCR Not Detected (Not Detect.); Human metapneumovirus PCR Not Detected (Not Detect.); Influenza A PCR Not Detected (Not Detect.); Influenza B PCR Not Detected (Not Detect.); Mycoplasma pneumoniae PCR Not Detected (Not Detect.); Parainfluenza 1 PCR Not Detected (Not Detect.); Parainfluenza 2 PCR Not Detected (Not Detect.); Parainfluenza 3 PCR Not Detected (Not Detect.); Parainfluenza 4 PCR Not Detected (Not Detect.); RSV PCR Not Detected (Not Detect.); Rhino/Enterovirus PCR Not Detected (Not Detect.)
[2020-10-21] MEDS: Levothyroxine Sodium 150 MCG TABLET PO (12:35)
[2020-10-21 13:01] LABS: SARS-CoV-2 PCR Detected (Not Detect.)
[2020-10-22] MEDS: cefTRIAXone sodium 1 GM in 0.9 % Sodium Chloride 50 ML IV (00:04)
[2020-10-22 03:28] VITALS: BP 118/57; PULSE 86; RESP 18; TEMP 36.8; O2SAT 91
[2020-10-22] MEDS: Heparin Sodium,Porcine 5,000 UNIT/ML VIAL 5000 UNIT SUBCUT ×3 (05:52→21:04)
[2020-10-22 07:02] LABS: MANUAL DIFF FLAG NO
[2020-10-22 07:20] LABS: Basophils Percent Auto 0.1 % (0-2); Hematocrit 41.8 % (37-47); Hemoglobin 13.2 g/dl (12.0-16.0); Imm Gran Abs Auto 0.06 X10*3/uL (0.00-0.03); Imm Gran Pct Auto 0.6 % (0.0-0.4); Lymphocytes Absolute Auto 1.3 X10*3/uL (1.2-4.9); Lymphocytes Percent Auto 12.1 % (20-40); Mean Corpuscular HGB Conc 31.6 g/dl (31.0-35.0); Mean Corpuscular Hemoglobin 29.3 pg (27.0-33.0); Mean Corpuscular Volume 92.7 fL (80-98); Mean Platelet Volume 9.9 fL (9.4-12.3); Monocytes Percent Auto 9.6 % (2-11); Neutrophils Absolute Auto 8.5 X10*3/uL (2.0-8.3); Neutrophils Percent Auto 77.6 % (45-73); Platelet Count 177 X10*3/uL (160-400); Red Blood Count 4.51 X10*6/uL (4.20-5.50); Red Cell Distribution Width 14.3 % (11.0-16.0); White Blood Count 10.9 X10*3/uL (4.8-10.8)
[2020-10-22 07:24] LABS: D Dimer 261 NG/ML
[2020-10-22 07:34] LABS: Anion Gap 16 (12-20); Blood Urea Nitrogen 19 mg/dL (9-16); Calcium 8.2 mg/dL (8.4-10.2); Carbon Dioxide 22 mmol/L (22-29); Chloride 108 mmol/L (96-108); Creatinine Clr Calc Pharmacy 64.9; Estimated Glomerular Filt Rate > 60; Glucose Fasting 118 mg/dL (60-99); Potassium 4.8 mmol/l (3.3-5.1); Sodium 141 mmol/L (135-145)
[2020-10-22 08:00] VITALS: BP 103/39; PULSE 84; RESP 18; TEMP 37; O2SAT 91
[2020-10-22] MEDS: dexAMETHasone sod phosphate 4 MG/ML VIAL 6 MG IVPUSH (08:01)
[2020-10-22] MEDS: Aspirin Enteric Coated 325 MG TABLET.DR PO ×2 (08:02→21:04)
[2020-10-22] MEDS: Omeprazole 20 MG CAPSULE.DR PO (08:02)
[2020-10-22] MEDS: Liothyronine Sodium 25 MCG TABLET PO (08:02)
--- NOTE | 2020-10-22 11:08 | HO.PM.IMPN ---
Subjective Subjective Date of Service: 10/22/20 Interval History: feels pretty well despite hypoxia Cardiovascular Cardiovascular: Reports no additional cardiovascular complaints Gastrointestinal Gastrointestinal: Reports no additional gastrointestinal complaints Physical Exam Vital Signs: Vital Signs: Last Vital Signs Temp 98.6 F 10/22/20 08:00 Pulse 84 10/22/20 08:00 Resp 18 10/22/20 08:00 BP 103/39 L 10/22/20 08:00 Pulse Ox 91 L 10/22/20 08:00 Body Mass Index 33.7 General: AO X 3, no acute distress Resp: CTA bilateral CVS: S1,S2,RRR GI: soft, non tender, non distended Neuro: motor grossly intact Psych: appropriate affect Objective Data Current Medications Generic Name Dose Route Start Last Admin Trade Name Subha PRN Reason Stop Dose Admin Aspirin 325 mg 10/21/20 09:00 10/22/20 08:02 Aspirin Enteric Coated 325 Mg Tablet. PO 325 mg BID ARAM Administration Dexamethasone Sodium Phosphate 6 mg 10/21/20 09:00 10/22/20 08:01 Dexamethasone Sod Phosphate 4 Mg/Ml Vial IVPUSH 6 mg DAILY [facility] Administration Heparin Sodium (Porcine) 5,000 unit 10/21/20 04:00 10/22/20 05:52 Heparin Sodium,Porcine 5,000 Unit/Ml Vial SUBCUT 5,000 unit Q8H ARAM Administration Ceftriaxone Sodium 1 gm/ 50 mls @ 100 mls/hr 10/21/20 23:00 10/22/20 00:53 Sodium Chloride IV Infused Q24H [facility] Infusion Doxycycline Hyclate 100 mg/ 250 mls @ 166.67 mls/hr 10/21/20 22:00 10/21/20 23:46 Sodium Chloride IV Infused Q24H [facility] Infusion Levothyroxine Sodium 150 mcg 10/21/20 21:00 10/21/20 12:35 Levothyroxine Sodium 150 Mcg Tablet PO 150 mcg BEDTIME [facility] Administration Liothyronine Sodium 25 mcg 10/21/20 09:00 10/22/20 08:02 Liothyronine Sodium 25 Mcg Tablet PO 25 mcg DAILY [facility] Administration Omeprazole 20 mg 10/21/20 09:00 10/22/20 08:02 Omeprazole 20 Mg Capsule. PO 20 mg DAILY [facility] Administration Labs CBC & Chem 7: 10/22/20 06:12 10/22/20 06:12 Microbiology Microbiology Results: Microbiology 10/20/20 22:55 Blood - Venous Blood Culture - Preliminary No growth after 24 hours. 10/20/20 22:09 Blood - Venous Blood Culture - Preliminary No growth after 24 hours. Assessment and Plan (1) Sepsis: Status: Acute (2) COVID-19: Status: Acute (3) Hypothyroid: Status: Acute (4) GERD (gastroesophageal reflux disease): Status: Acute (5) Acute respiratory failure with hypoxia: Status: Acute Assessment and Plan: 75-year-old female presented with shortness of breath Viral sepsis present on admission secondary to COVID pneumonia complicated by acute hypoxic respiratory failure Decadron, ceftriaxone, wean O2 as tolerated, monitor prognostic labs, actually feeling well, but will keep for hypoxia Hypothyroid Synthroid GERD PPI
[2020-10-22 11:33] VITALS: BP 107/59; PULSE 79; RESP 18; TEMP 36.4; O2SAT 94
--- NOTE | 2020-10-22 12:58 | MHC.CM.PN ---
Female 75 Covid+ DP return home with [facility]. atients DTR will provide transportation. Continued stay r/t Hypoxia. CM will follow.
[2020-10-22 14:39] VITALS: BMI 33.7
[2020-10-22 15:19] VITALS: BP 122/60; PULSE 80; RESP 19; TEMP 36.3; O2SAT 97
[2020-10-22 15:30] VITALS: O2SAT 92
--- NOTE | 2020-10-22 16:06 | P.CNID_ITS ---
History of Present Illness Data of Consult Service Date: 10/22/20 Requesting physician: Luis Small Primary Care Provider: Unknown Physician HPI Reason for consult: COVID She presents with symptoms since October 14 She has been sheltering in place but had car repairs done at [facility] on 10/10 Otherwise no one has been ill She has more shortness of breath and fatigue She is on 4 liters to maintain sats in low 90s Review of Systems Constitutional: Constitutional: Reports weakness Neurologic: Reports weakness PMFSH Past Medical History Medical History Hypothyroid Functional capacity: independent ambulation Surgical History Surgical History History of appendectomy S/P hip replacement Social History Social History Household Members: Children [facility] Do you presently have visiting nurse or other home services: No Alcohol intake: never Smoking Status: Never smoker Use of substances other than those prescribed or required for medical reasons: No Substance Use Frequency: Socially Currently Displaying Signs/Symptoms of Drug Intoxication Withdrawal: No Have you been hit, kicked, punched, or otherwise hurt by someone within the past year? If so, by whom?: No Do you feel safe in your current relationship?: Yes Is there a partner from a previous relationship who is making you feel unsafe now?: No Are you made to feel afraid or neglected: No Advance Directives: No Advance Directives Information Provided: No Advance Directives on File: No Do you have thoughts of harming others: None Do you have a plan to hurt others: No Plan Recently lost weight without trying: No service: No Current occupational status: retired Meds Allergies Allergy/AdvReac Type Severity Reaction Status Date / Time No Known Drug Allergies Allergy Unknown UNKNOWN Verified 10/21/20 05:22 Home Medications Medication Instructions Recorded Confirmed Type aspirin 1 tab PO BID 10/21/20 10/21/20 History levothyroxine 1 tab PO BEDTIME 10/21/20 10/21/20 History liothyronine 1 tab PO DAILY 10/21/20 10/21/20 History pantoprazole 1 tab PO DAILY 10/21/20 10/21/20 History Physical Exam Vital Signs: Vital Signs: Last Vital Signs Temp 97.3 F 10/22/20 15:19 Pulse 80 10/22/20 15:19 Resp 19 10/22/20 15:19 BP 122/60 10/22/20 15:19 Pulse Ox 97 10/22/20 15:19 Body Mass Index 33.7 Const: General: cooperative HENMT: Head: Yes normal to inspection Eyes: General: appearance normal, both eyes and all related structures Resp: Effort & Inspection: normal respiratory effort Cardio: Rate: regular rate Rhythm: regular rhythm GI: Inspection: Yes normal to inspection Palpation (GI): nontender Extrem: General: Yes normal to inspection Assessment and Plan (1) COVID-19: Problem details: She has moderate to severe disease with worsening hypoxia She is eight days into illness She is on moderate levels oxygen Status: Acute Give Remdesivir Give Dexamethasone No need for antibiotics,no evidence of bacterial infection (2) Sepsis: Status: Acute (3) Acute respiratory failure with hypoxia: Status: Acute Results Labs CBC & Chem 7: 10/22/20 06:12 10/22/20 06:12 Labs: Short CBC 10/22/20 Range/Units 06:12 WBC 10.9 H (4.8-10.8) X10*3/uL Hgb 13.2 (12.0-16.0) g/dl Hct 41.8 (37-47) % Plt Count 177 (160-400) X10*3/uL BMP 10/22/20 06:12 Sodium 141 Potassium 4.8 Chloride 108 Carbon Dioxide 22 BUN 19 H Creatinine 0.84 Calcium 8.2 L Microbiology Microbiology Results: Microbiology 10/20/20 22:55 Blood - Venous Blood Culture - Preliminary No growth after 24 hours. 10/20/20 22:09 Blood - Venous Blood Culture - Preliminary No growth after 24 hours.
[2020-10-22] MEDS: Remdesivir 200 MG in 0.9 % Sodium Chloride 210 ML 105 MG IV (16:48)
[2020-10-22 19:22] VITALS: BP 113/55; PULSE 80; RESP 19; TEMP 36; O2SAT 92
[2020-10-22] MEDS: Levothyroxine Sodium 150 MCG TABLET PO (21:04)
[2020-10-23] VITALS (7 sets, daily range): BP systolic 97–116; BP diastolic 46–61; PULSE 71–87; RESP 18–20; TEMP 36.4–36.9; O2SAT 87–93
[2020-10-23] MEDS: Heparin Sodium,Porcine 5,000 UNIT/ML VIAL 5000 UNIT SUBCUT ×3 (03:59→20:48)
[2020-10-23 06:17] LABS: MANUAL DIFF FLAG NO
[2020-10-23 06:25] LABS: Basophils Percent Auto 0.1 % (0-2); Hematocrit 39.4 % (37-47); Hemoglobin 12.6 g/dl (12.0-16.0); Imm Gran Abs Auto 0.07 X10*3/uL (0.00-0.03); Imm Gran Pct Auto 0.7 % (0.0-0.4); Lymphocytes Percent Auto 8.9 % (20-40); Mean Corpuscular Hemoglobin 29.4 pg (27.0-33.0); Mean Corpuscular Volume 91.8 fL (80-98); Mean Platelet Volume 9.7 fL (9.4-12.3); Monocytes Absolute Auto 0.7 X10*3/uL (0.1-1.2); Neutrophils Absolute Auto 8.9 X10*3/uL (2.0-8.3); Neutrophils Percent Auto 83.3 % (45-73); Platelet Count 219 X10*3/uL (160-400); Red Blood Count 4.29 X10*6/uL (4.20-5.50); Red Cell Distribution Width 14.5 % (11.0-16.0); White Blood Count 10.6 X10*3/uL (4.8-10.8)
[2020-10-23 06:44] LABS: Anion Gap 15 (12-20); Blood Urea Nitrogen 21 mg/dL (9-16); Carbon Dioxide 25 mmol/L (22-29); Chloride 108 mmol/L (96-108); Creatinine Clr Calc Pharmacy 61.9; Estimated Glomerular Filt Rate > 60; Glucose Fasting 94 mg/dL (60-99); Potassium 4.5 mmol/l (3.3-5.1); Sodium 143 mmol/L (135-145)
[2020-10-23 08:13] LABS: D Dimer 318 NG/ML
[2020-10-23] MEDS: Liothyronine Sodium 25 MCG TABLET PO (08:45)
[2020-10-23] MEDS: Aspirin Enteric Coated 325 MG TABLET.DR PO ×2 (08:45→20:47)
[2020-10-23] MEDS: dexAMETHasone sod phosphate 4 MG/ML VIAL 6 MG IVPUSH (08:45)
[2020-10-23] MEDS: Omeprazole 20 MG CAPSULE.DR PO (08:45)
[2020-10-23] MEDS: Remdesivir 100 MG in 0.9 % Sodium Chloride 230 ML 115 MG IV (16:54)
--- NOTE | 2020-10-23 19:13 | PC.NURSE ---
Pt alert and oriented, able to make needs known. Attempted to titrate O2, pt tolerated for short amount of time. Pt up to commode, o2 sat dropped. When pt back to bed, unable to recover o2 sat, increased to 3L NC, still only satting 88-89%. Placed on 4L NC, pt satting 90-94%. notified of above. Pt has some mild SOB, nose blown and new NC applied, pt states SOB improved.
[2020-10-23] MEDS: Levothyroxine Sodium 150 MCG TABLET PO (20:47)
--- NOTE | 2020-10-23 21:38 | PC.NURSE ---
Pt had an O2 of 82 % at 4L of Oxygen. Had to increase pt to 7L, which made pt go to 93%
--- NOTE | 2020-10-23 22:48 | PC.NURSE ---
pt was 90% at 7L o2, pt was raised to 8L, Pt is now 94%
[2020-10-24] VITALS (9 sets, daily range): BP systolic 103–157; BP diastolic 58–79; PULSE 64–82; RESP 14–25; TEMP 36.1–37; O2SAT 86–95
[2020-10-24] MEDS: Aspirin Enteric Coated 325 MG TABLET.DR PO ×2 (09:13→20:43)
[2020-10-24] MEDS: Liothyronine Sodium 25 MCG TABLET PO (09:14)
[2020-10-24] MEDS: Omeprazole 20 MG CAPSULE.DR PO (09:14)
[2020-10-24] MEDS: dexAMETHasone sod phosphate 4 MG/ML VIAL 6 MG IVPUSH (09:14)
--- NOTE | 2020-10-24 11:42 | HO.PM.IMPN ---
Subjective Subjective Date of Service: 10/24/20 Interval History: Seen in f/u acute respiratory failure with hypoxia due to covid 19.. She remains on oxygen presently at 7L by [place] and sating around 93 ROS: she feel well no fever doesn't feel sob except with exertion no confusion Physical Exam Vital Signs: Vital Signs: Last Vital Signs Temp 97.8 F 10/24/20 11:29 Pulse 79 10/24/20 11:29 Resp 25 H 10/24/20 11:29 BP 129/60 10/24/20 11:29 Pulse Ox 86 L 10/24/20 11:29 Body Mass Index 33.7 Const: Other: General: AO X 3, no acute distress Resp: mild increase in respiratory muscle use CVS: S1,S2,RRR GI: +BS, NT, no distention Skin: No rash Neuro: motor grossly intact Psych: appropriate affect Objective Data Current Medications Generic Name Dose Route Start Last Admin Trade Name Freq PRN Reason Stop Dose Admin Aspirin 325 mg 10/21/20 09:00 10/24/20 09:13 Aspirin Enteric Coated 325 Mg Tablet. PO 325 mg BID ARAM Administration Dexamethasone Sodium Phosphate 6 mg 10/21/20 09:00 10/24/20 09:14 Dexamethasone Sod Phosphate 4 Mg/Ml Vial IVPUSH 6 mg DAILY ARAM Administration Heparin Sodium (Porcine) 5,000 unit 10/21/20 04:00 10/24/20 06:05 Heparin Sodium,Porcine 5,000 Unit/Ml Vial SUBCUT Not Given Q8H ARAM Remdesivir 100 mg/ Sodium 230 mls @ 115 mls/hr 10/23/20 16:00 10/23/20 19:09 Chloride IV 10/26/20 17:59 Infused Q24H ARAM Infusion Levothyroxine Sodium 150 mcg 10/21/20 21:00 10/23/20 20:47 Levothyroxine Sodium 150 Mcg Tablet PO 150 mcg BEDTIME ARAM Administration Liothyronine Sodium 25 mcg 10/21/20 09:00 10/24/20 09:14 Liothyronine Sodium 25 Mcg Tablet PO 25 mcg DAILY ARAM Administration Omeprazole 20 mg 10/21/20 09:00 10/24/20 09:14 Omeprazole 20 Mg Capsule. PO 20 mg DAILY ARAM Administration Labs CBC & Chem 7: 10/23/20 05:36 10/23/20 05:36 Microbiology Microbiology Results: Microbiology 10/20/20 22:55 Blood - Venous Blood Culture - Preliminary No growth after 48 hours. 10/20/20 22:09 Blood - Venous Blood Culture - Preliminary No growth after 48 hours. Assessment and Plan (1) Sepsis: Status: Acute (2) COVID-19: Status: Acute (3) Hypothyroid: Status: Acute (4) GERD (gastroesophageal reflux disease): Status: Acute (5) Acute respiratory failure with hypoxia: Status: Acute Assessment and Plan: 75-year-old female presented with shortness of breath Viral sepsis present on admission secondary to COVID pneumonia complicated by acute hypoxic respiratory failure with persitent hypoxia Decadron, ceftriaxone, wean O2 as tolerated, actually feeling well, but will continue monitoring and weaning off oxygen Hypothyroid Synthroid GERD PPI prognosis fair, will probably be discharge in couple of days
[2020-10-24] MEDS: Heparin Sodium,Porcine 5,000 UNIT/ML VIAL 5000 UNIT SUBCUT ×2 (11:50→20:43)
--- NOTE | 2020-10-24 13:02 | PC.NURSE ---
Pt O2 sat between 86-9% ocasionally. Pt moving around in room because she feels much better . Told pt that its good she is feeling better but her lungs can't handle all the extra movement she is doing so she needed to rest for a little.
--- NOTE | 2020-10-24 13:20 | MHC.CM.PN ---
Female 75 DX Covid+ DP home with [facility]. Patients Dtr will provide transportation. LOS R/T need for supplemental Oxygen 7L O2 via NC. CM will follow for change in discharge needs.
[2020-10-24] MEDS: Remdesivir 100 MG in 0.9 % Sodium Chloride 230 ML 115 MG IV (16:56)
--- NOTE | 2020-10-24 18:45 | PC.NURSE ---
Pt 02 sat 87-89% consistently, increased o2 NC to 4L satting 90-94%, occasionally drops to 85% with movement or oob to commode. Pt recovers well, has no c/o sob/trouble breathing.
[2020-10-24] MEDS: Levothyroxine Sodium 150 MCG TABLET PO (20:43)
[2020-10-25] VITALS (10 sets, daily range): BP systolic 102–129; BP diastolic 53–59; PULSE 60–83; RESP 18–22; TEMP 36.2–36.6; O2SAT 90–95
[2020-10-25] MEDS: Heparin Sodium,Porcine 5,000 UNIT/ML VIAL 5000 UNIT SUBCUT ×3 (04:22→20:29)
[2020-10-25] MEDS: Omeprazole 20 MG CAPSULE.DR PO (07:42)
[2020-10-25] MEDS: dexAMETHasone sod phosphate 4 MG/ML VIAL 6 MG IVPUSH (07:42)
[2020-10-25] MEDS: Aspirin Enteric Coated 325 MG TABLET.DR PO ×2 (07:42→20:29)
[2020-10-25] MEDS: Liothyronine Sodium 25 MCG TABLET PO (11:07)
--- NOTE | 2020-10-25 13:40 | HO.PM.IMPN ---
Subjective Subjective Date of Service: 10/25/20 Interval History: Seen in f/u acute respiratory failure with hypoxia due to covid 19.. She remains on high amoutn of oxygen and has desaturated this morning so we are upgrading to high flow O2 ROS: she feel well no fever doesn't feel sob except with exertion no confusion Physical Exam Vital Signs: Vital Signs: Last Vital Signs Temp 97.5 F 10/25/20 11:33 Pulse 75 10/25/20 11:33 Resp 18 10/25/20 11:33 BP 105/55 L 10/25/20 11:33 Pulse Ox 95 10/25/20 11:33 Body Mass Index 33.7 Const: Other: General: AO X 3, no acute distress Resp: mild increase in respiratory muscle use CVS: S1,S2,RRR GI: +BS, NT, no distention Skin: No rash Neuro: motor grossly intact Psych: appropriate affect Objective Data Current Medications Generic Name Dose Route Start Last Admin Trade Name Freq PRN Reason Stop Dose Admin Aspirin 325 mg 10/21/20 09:00 10/25/20 07:42 Aspirin Enteric Coated 325 Mg Tablet. PO 325 mg BID ARAM Administration Dexamethasone Sodium Phosphate 6 mg 10/21/20 09:00 10/25/20 07:42 Dexamethasone Sod Phosphate 4 Mg/Ml Vial IVPUSH 6 mg DAILY ARAM Administration Heparin Sodium (Porcine) 5,000 unit 10/21/20 04:00 10/25/20 11:06 Heparin Sodium,Porcine 5,000 Unit/Ml Vial SUBCUT 5,000 unit Q8H ARAM Administration Remdesivir 100 mg/ Sodium 230 mls @ 115 mls/hr 10/23/20 16:00 10/24/20 19:00 Chloride IV 10/26/20 17:59 Infused Q24H ARAM Infusion Levothyroxine Sodium 150 mcg 10/21/20 21:00 10/24/20 20:43 Levothyroxine Sodium 150 Mcg Tablet PO 150 mcg BEDTIME ARAM Administration Liothyronine Sodium 25 mcg 10/21/20 09:00 10/25/20 11:07 Liothyronine Sodium 25 Mcg Tablet PO 25 mcg DAILY ARAM Administration Omeprazole 20 mg 10/21/20 09:00 10/25/20 07:42 Omeprazole 20 Mg Capsule. PO 20 mg DAILY ARAM Administration Labs CBC & Chem 7: 10/23/20 05:36 10/23/20 05:36 Microbiology Microbiology Results: Microbiology 10/20/20 22:55 Blood - Venous Blood Culture - Preliminary No growth after 48 hours. 10/20/20 22:09 Blood - Venous Blood Culture - Preliminary No growth after 48 hours. Assessment and Plan (1) Sepsis: Status: Acute (2) COVID-19: Status: Acute (3) Hypothyroid: Status: Acute (4) GERD (gastroesophageal reflux disease): Status: Acute (5) Acute respiratory failure with hypoxia: Status: Acute Assessment and Plan: 75-year-old female presented with shortness of breath Viral sepsis present on admission secondary to COVID pneumonia complicated by acute hypoxic respiratory failure with persitent hypoxia Decadron, ceftriaxone, upgrade to high flow, actually feeling well, but will continue monitoring and weaning off oxygen Hypothyroid Synthroid GERD PPI prognosis fair, will probably be discharge in couple of days
[2020-10-25] MEDS: Remdesivir 100 MG in 0.9 % Sodium Chloride 230 ML 115 MG IV (17:04)
[2020-10-25] MEDS: Artificial Tears 15 ML DROPS 2 DROP EYE-BOTH (20:28)
[2020-10-25] MEDS: Levothyroxine Sodium 150 MCG TABLET PO (20:29)
[2020-10-26] VITALS (11 sets, daily range): BP systolic 90–134; BP diastolic 45–59; PULSE 61–78; RESP 18–20; TEMP 36.3–36.9; O2SAT 89–96
[2020-10-26] MEDS: Heparin Sodium,Porcine 5,000 UNIT/ML VIAL 5000 UNIT SUBCUT ×3 (03:49→21:03)
[2020-10-26] MEDS: dexAMETHasone sod phosphate 4 MG/ML VIAL 6 MG IVPUSH (09:01)
[2020-10-26] MEDS: Omeprazole 20 MG CAPSULE.DR PO (09:02)
[2020-10-26] MEDS: Aspirin Enteric Coated 325 MG TABLET.DR PO ×2 (09:02→21:04)
--- NOTE | 2020-10-26 10:56 | MHC.CM.PN ---
Female 75 dx Covid +. The patient is now on HIGHFLOW oxygen. Patient was educated on need for HCP. HCP complete, placed on chart. DP Home with [facility]. Dtr will provide transportation. Further assessment for change in DC needs will be required. CM will follow.
--- NOTE | 2020-10-26 11:36 | HO.PM.IMPN ---
Subjective Subjective Date of Service: 10/26/20 Interval History: Seen in f/u acute respiratory failure with hypoxia due to covid 19.. She remains on high amount of oxygen but in good spirint only feel sob with exertion ROS: she feel well no fever doesn't feel sob except with exertion no confusion Physical Exam Vital Signs: Vital Signs: Last Vital Signs Temp 97.4 F 10/26/20 08:00 Pulse 74 10/26/20 08:00 Resp 18 10/26/20 11:20 BP 94/53 L 10/26/20 08:00 Pulse Ox 92 10/26/20 08:00 Body Mass Index 33.7 Const: Other: General: AO X 3, no acute distress Resp: mild increase in respiratory muscle use CVS: S1,S2,RRR GI: +BS, NT, no distention Skin: No rash Neuro: motor grossly intact Psych: appropriate affect Objective Data Current Medications Generic Name Dose Route Start Last Admin Trade Name Freq PRN Reason Stop Dose Admin Artificial Tears 2 drop 10/25/20 15:55 10/25/20 20:28 Artificial Tears 15 Ml Drops EYE-BOTH 2 drop Q4H PRN Administration Dryness Aspirin 325 mg 10/21/20 09:00 10/26/20 09:02 Aspirin Enteric Coated 325 Mg Tablet.Dr PO 325 mg BID ARAM Administration Dexamethasone Sodium Phosphate 6 mg 10/21/20 09:00 10/26/20 09:01 Dexamethasone Sod Phosphate 4 Mg/Ml Vial IVPUSH 6 mg DAILY ARAM Administration Heparin Sodium (Porcine) 5,000 unit 10/21/20 04:00 10/26/20 03:49 Heparin Sodium,Porcine 5,000 Unit/Ml Vial SUBCUT 5,000 unit Q8H ARAM Administration Remdesivir 100 mg/ Sodium 230 mls @ 115 mls/hr 10/23/20 16:00 10/25/20 19:19 Chloride IV 10/26/20 17:59 Infused Q24H ARAM Infusion Levothyroxine Sodium 150 mcg 10/21/20 21:00 10/25/20 20:29 Levothyroxine Sodium 150 Mcg Tablet PO 150 mcg BEDTIME ARAM Administration Liothyronine Sodium 25 mcg 10/21/20 09:00 10/25/20 11:07 Liothyronine Sodium 25 Mcg Tablet PO 25 mcg DAILY ARAM Administration Omeprazole 20 mg 10/21/20 09:00 10/26/20 09:02 Omeprazole 20 Mg Capsule. PO 20 mg DAILY ARAM Administration Labs CBC & Chem 7: 10/23/20 05:36 10/23/20 05:36 Microbiology Microbiology Results: Microbiology 10/20/20 22:55 Blood - Venous Blood Culture - Final No growth after 5 days. 10/20/20 22:09 Blood - Venous Blood Culture - Final No growth after 5 days. Assessment and Plan (1) Sepsis: Status: Acute (2) COVID-19: Status: Acute (3) Hypothyroid: Status: Acute (4) GERD (gastroesophageal reflux disease): Status: Acute (5) Acute respiratory failure with hypoxia: Status: Acute Assessment and Plan: 75-year-old female presented with shortness of breath Viral sepsis present on admission secondary to COVID pneumonia complicated by acute hypoxic respiratory failure with persitent hypoxia continue Decadron, ceftriaxone, continue oxygen by high flow. No indication for plasma or Remdesevir. Check inflamatory markers Hypothyroid Synthroid GERD PPI prognosis fair, will probably need oxygen for discharge.
[2020-10-26 12:28] LABS: Hematocrit 40.8 % (37-47); Hemoglobin 13.1 g/dl (12.0-16.0); Mean Corpuscular HGB Conc 32.1 g/dl (31.0-35.0); Mean Corpuscular Hemoglobin 29.1 pg (27.0-33.0); Mean Corpuscular Volume 90.7 fL (80-98); Mean Platelet Volume 10.5 fL (9.4-12.3); Platelet Count 226 X10*3/uL (160-400); Red Cell Distribution Width 14.1 % (11.0-16.0); White Blood Count 11.7 X10*3/uL (4.8-10.8)
[2020-10-26 12:35] LABS: D Dimer 931 NG/ML
[2020-10-26 12:55] LABS: Anion Gap 15 (12-20); Blood Urea Nitrogen 21 mg/dL (9-16); Calcium 8.1 mg/dL (8.4-10.2); Carbon Dioxide 21 mmol/L (22-29); Chloride 106 mmol/L (96-108); Estimated Glomerular Filt Rate 58; Glucose Random 168 mg/dL (60-115); Potassium 4.4 mmol/l (3.3-5.1); Sodium 138 mmol/L (135-145)
[2020-10-26 12:56] LABS: Lactate Dehydrogenase 470 U/L (122-220)
[2020-10-26] MEDS: Remdesivir 100 MG in 0.9 % Sodium Chloride 230 ML 115 MG IV (16:41)
[2020-10-26] MEDS: Levothyroxine Sodium 150 MCG TABLET PO (21:04)
[2020-10-27] VITALS (13 sets, daily range): BP systolic 102–120; BP diastolic 42–64; PULSE 51–77; RESP 18–22; TEMP 36.1–36.8; O2SAT 90–95
[2020-10-27] MEDS: Heparin Sodium,Porcine 5,000 UNIT/ML VIAL 5000 UNIT SUBCUT ×3 (03:54→20:39)
[2020-10-27] MEDS: Omeprazole 20 MG CAPSULE.DR PO (10:15)
[2020-10-27] MEDS: dexAMETHasone sod phosphate 4 MG/ML VIAL 6 MG IVPUSH (10:15)
[2020-10-27] MEDS: Aspirin Enteric Coated 325 MG TABLET.DR PO ×2 (10:15→20:40)
[2020-10-27] MEDS: Liothyronine Sodium 25 MCG TABLET PO (10:15)
--- NOTE | 2020-10-27 13:31 | HO.PM.IMPN ---
Subjective Subjective Date of Service: 10/27/20 Interval History: Seen in f/u acute respiratory failure with hypoxia due to covid 19.. She remains on high flow O2 but look and feel better than prior day ROS: she feel well no fever doesn't feel sob except with exertion no confusion Physical Exam Vital Signs: Vital Signs: Last Vital Signs Temp 97.2 F 10/27/20 10:58 Pulse 77 10/27/20 10:58 Resp 20 10/27/20 10:58 BP 108/51 L 10/27/20 10:58 Pulse Ox 91 L 10/27/20 10:58 Body Mass Index 33.7 General: AO X 3, no acute distress Resp: normal respiratory effort CVS: S1,S2,RRR GI: +BS, NT, no distention Skin: No rash Neuro: motor grossly intact Psych: appropriate affect Objective Data Current Medications Generic Name Dose Route Start Last Admin Trade Name Freq PRN Reason Stop Dose Admin Artificial Tears 2 drop 10/25/20 15:55 10/25/20 20:28 Artificial Tears 15 Ml Drops EYE-BOTH 2 drop Q4H PRN Administration Dryness Aspirin 325 mg 10/21/20 09:00 10/27/20 10:15 Aspirin Enteric Coated 325 Mg Tablet. PO 325 mg BID ARAM Administration Dexamethasone Sodium Phosphate 6 mg 10/21/20 09:00 10/27/20 10:15 Dexamethasone Sod Phosphate 4 Mg/Ml Vial IVPUSH 6 mg DAILY ARAM Administration Heparin Sodium (Porcine) 5,000 unit 10/21/20 04:00 10/27/20 11:49 Heparin Sodium,Porcine 5,000 Unit/Ml Vial SUBCUT 5,000 unit Q8H ARAM Administration Levothyroxine Sodium 150 mcg 10/21/20 21:00 10/26/20 21:04 Levothyroxine Sodium 150 Mcg Tablet PO 150 mcg BEDTIME ARAM Administration Liothyronine Sodium 25 mcg 10/21/20 09:00 10/27/20 10:15 Liothyronine Sodium 25 Mcg Tablet PO 25 mcg DAILY ARAM Administration Omeprazole 20 mg 10/21/20 09:00 10/27/20 10:15 Omeprazole 20 Mg Capsule. PO 20 mg DAILY ARAM Administration Labs CBC & Chem 7: 10/26/20 12:12 10/26/20 12:12 Microbiology Microbiology Results: Microbiology 10/20/20 22:55 Blood - Venous Blood Culture - Final No growth after 5 days. 10/20/20 22:09 Blood - Venous Blood Culture - Final No growth after 5 days. Assessment and Plan (1) Sepsis: Status: Acute (2) COVID-19: Status: Acute (3) Hypothyroid: Status: Acute (4) GERD (gastroesophageal reflux disease): Status: Acute (5) Acute respiratory failure with hypoxia: Status: Acute Assessment and Plan: 75-year-old female presented with shortness of breath Viral sepsis present on admission secondary to COVID pneumonia complicated by acute hypoxic respiratory failure with persitent hypoxia Finish 10 course of Decadron, continue oxygen by high flow and wean as kate. No indication for plasma or Remdesevir. Hypothyroid Synthroid GERD PPI prognosis fair, will probably need oxygen for discharge.
[2020-10-27] MEDS: Levothyroxine Sodium 150 MCG TABLET PO (20:40)
[2020-10-28] VITALS (11 sets, daily range): BP systolic 93–121; BP diastolic 43–68; PULSE 51–80; RESP 18–20; TEMP 35.6–36.8; O2SAT 90–94
[2020-10-28] MEDS: Heparin Sodium,Porcine 5,000 UNIT/ML VIAL 5000 UNIT SUBCUT ×3 (04:54→20:46)
[2020-10-28] MEDS: dexAMETHasone sod phosphate 4 MG/ML VIAL 6 MG IVPUSH (07:58)
[2020-10-28] MEDS: Omeprazole 20 MG CAPSULE.DR PO (07:59)
[2020-10-28] MEDS: Aspirin Enteric Coated 325 MG TABLET.DR PO ×2 (07:59→20:47)
[2020-10-28] MEDS: Liothyronine Sodium 25 MCG TABLET PO (07:59)
--- NOTE | 2020-10-28 10:12 | HO.PM.IMPN ---
Subjective Subjective Date of Service: 10/28/20 Interval History: Seen in f/u acute respiratory failure with hypoxia due to covid 19.. She remains on high flow O2 but we have come down some. She is in good spirit, some persistent cough ROS: she feel well no fever doesn't feel sob except with exertion no confusion Physical Exam Vital Signs: Vital Signs: Last Vital Signs Temp 96.1 F L 10/28/20 09:11 Pulse 67 10/28/20 09:11 Resp 18 10/28/20 09:11 BP 97/44 L 10/28/20 09:11 Pulse Ox 91 L 10/28/20 09:11 Body Mass Index 33.7 Const: Other: General: AO X 3, no acute distress Resp: normal respiratory effort CVS: S1,S2,RRR GI: +BS, NT, no distention Skin: No rash Neuro: motor grossly intact Psych: appropriate affect Objective Data Current Medications Generic Name Dose Route Start Last Admin Trade Name Freq PRN Reason Stop Dose Admin Artificial Tears 2 drop 10/25/20 15:55 10/25/20 20:28 Artificial Tears 15 Ml Drops EYE-BOTH 2 drop Q4H PRN Administration Dryness Aspirin 325 mg 10/21/20 09:00 10/28/20 07:59 Aspirin Enteric Coated 325 Mg Tablet. PO 325 mg BID ARAM Administration Dexamethasone Sodium Phosphate 6 mg 10/21/20 09:00 10/28/20 07:58 Dexamethasone Sod Phosphate 4 Mg/Ml Vial IVPUSH 6 mg DAILY ARAM Administration Heparin Sodium (Porcine) 5,000 unit 10/21/20 04:00 10/28/20 04:54 Heparin Sodium,Porcine 5,000 Unit/Ml Vial SUBCUT 5,000 unit Q8H ARAM Administration Levothyroxine Sodium 150 mcg 10/21/20 21:00 10/27/20 20:40 Levothyroxine Sodium 150 Mcg Tablet PO 150 mcg BEDTIME ARAM Administration Liothyronine Sodium 25 mcg 10/21/20 09:00 10/28/20 07:59 Liothyronine Sodium 25 Mcg Tablet PO 25 mcg DAILY ARAM Administration Omeprazole 20 mg 10/21/20 09:00 10/28/20 07:59 Omeprazole 20 Mg Capsule. PO 20 mg DAILY ARAM Administration Labs CBC & Chem 7: 10/26/20 12:12 10/26/20 12:12 Microbiology Microbiology Results: Microbiology 10/20/20 22:55 Blood - Venous Blood Culture - Final No growth after 5 days. 10/20/20 22:09 Blood - Venous Blood Culture - Final No growth after 5 days. Assessment and Plan (1) Sepsis: Status: Acute (2) COVID-19: Status: Acute (3) Hypothyroid: Status: Acute (4) GERD (gastroesophageal reflux disease): Status: Acute (5) Acute respiratory failure with hypoxia: Status: Acute Assessment and Plan: 75/F with hypothyroidism, GERD here with acute hypoxic resp failure due to covid 19 w/ viral sepsis Covid 19, acute hypoxic respi failure, viral spsis poa requiring high flow which we are weaning, clinically look well -To complete Dexamethasone x 10, D8/10 -Seen by ID no indication for Remdesevir or Plasma Hypothyroid Synthroid GERD PPI prognosis fair, will probably need oxygen for discharge. Heparin for DVT prophylaxis
[2020-10-28] MEDS: Levothyroxine Sodium 150 MCG TABLET PO (20:47)
[2020-10-29] VITALS (14 sets, daily range): BP systolic 90–124; BP diastolic 45–71; PULSE 53–89; RESP 15–90; TEMP 36.3–37.4; O2SAT 88–95
--- NOTE | 2020-10-29 05:14 | PC.NURSE ---
pt had good night 02 sats 89-93 % on high flow o2 but when out of bed to commode sats as low as 78% but and slow recovery but she said she feels fine and dont feel sob when already back in bed. denies pain
[2020-10-29] MEDS: Heparin Sodium,Porcine 5,000 UNIT/ML VIAL 5000 UNIT SUBCUT ×3 (05:26→19:54)
[2020-10-29] MEDS: dexAMETHasone sod phosphate 4 MG/ML VIAL 6 MG IVPUSH (09:06)
[2020-10-29] MEDS: Liothyronine Sodium 25 MCG TABLET PO (09:06)
[2020-10-29] MEDS: Omeprazole 20 MG CAPSULE.DR PO (09:06)
[2020-10-29] MEDS: Aspirin Enteric Coated 325 MG TABLET.DR PO ×2 (09:06→19:49)
--- NOTE | 2020-10-29 12:35 | MHC.CM.PN ---
Female 75 DX Covid+DP home with [facility]. The patients dtr will provide transportation. LOS R/t demand for HIGHflow oxygen. CM will follow.
--- NOTE | 2020-10-29 13:01 | HO.PM.IMPN ---
Subjective Subjective Date of Service: 10/29/20 Interval History: not that sob considering o2 requirements Cardiovascular Cardiovascular: Reports no additional cardiovascular complaints Gastrointestinal Gastrointestinal: Reports no additional gastrointestinal complaints Physical Exam Vital Signs: Vital Signs: Last Vital Signs Temp 97.7 F 10/29/20 11:50 Pulse 83 10/29/20 11:50 Resp 19 10/29/20 11:50 BP 90/45 L 10/29/20 11:50 Pulse Ox 88 L 10/29/20 11:50 Body Mass Index 33.7 General: AO X 3, no acute distress Resp: CTA bilateral CVS: S1,S2,RRR GI: soft, non tender, non distended Neuro: motor grossly intact Psych: appropriate affect Objective Data Current Medications Generic Name Dose Route Start Last Admin Trade Name Freq PRN Reason Stop Dose Admin Artificial Tears 2 drop 10/25/20 15:55 10/25/20 20:28 Artificial Tears 15 Ml Drops EYE-BOTH 2 drop Q4H PRN Administration Dryness Aspirin 325 mg 10/21/20 09:00 10/29/20 09:06 Aspirin Enteric Coated 325 Mg Tablet. PO 325 mg BID ARAM Administration Dexamethasone Sodium Phosphate 6 mg 10/21/20 09:00 10/29/20 09:06 Dexamethasone Sod Phosphate 4 Mg/Ml Vial IVPUSH 6 mg DAILY ARAM Administration Heparin Sodium (Porcine) 5,000 unit 10/21/20 04:00 10/29/20 11:22 Heparin Sodium,Porcine 5,000 Unit/Ml Vial SUBCUT 5,000 unit Q8H ARAM Administration Levothyroxine Sodium 150 mcg 10/21/20 21:00 10/28/20 20:47 Levothyroxine Sodium 150 Mcg Tablet PO 150 mcg BEDTIME ARAM Administration Liothyronine Sodium 25 mcg 10/21/20 09:00 10/29/20 09:06 Liothyronine Sodium 25 Mcg Tablet PO 25 mcg DAILY ARAM Administration Omeprazole 20 mg 10/21/20 09:00 10/29/20 09:06 Omeprazole 20 Mg Capsule. PO 20 mg DAILY ARAM Administration Labs CBC & Chem 7: 10/26/20 12:12 10/26/20 12:12 Microbiology Microbiology Results: Microbiology 10/20/20 22:55 Blood - Venous Blood Culture - Final No growth after 5 days. 10/20/20 22:09 Blood - Venous Blood Culture - Final No growth after 5 days. Assessment and Plan (1) Sepsis: Status: Acute (2) COVID-19: Status: Acute (3) Hypothyroid: Status: Acute (4) GERD (gastroesophageal reflux disease): Status: Acute (5) Acute respiratory failure with hypoxia: Status: Acute Assessment and Plan: 75/F with hypothyroidism, GERD here with acute hypoxic resp failure due to covid 19 w/ viral sepsis Covid 19, acute hypoxic respi failure, viral spsis poa requiring high flow which we are weaning, clinically look well -To complete Dexamethasone x 10, D9/10 -Seen by ID no indication for Remdesevir or Plasma Hypothyroid Synthroid GERD PPI Heparin for DVT prophylaxis
--- NOTE | 2020-10-29 13:28 | MHC.CLN ---
F/U 100% PO DIET RX: LOW Na 1800-WILL CHANGE TO REGULAR NOTED FRAGILE SKIN FOLLOWING
[2020-10-29] MEDS: Levothyroxine Sodium 150 MCG TABLET PO (19:49)
[2020-10-30] VITALS (13 sets, daily range): BP systolic 93–125; BP diastolic 53–69; PULSE 55–879; RESP 2–22; TEMP 36.4–36.9; O2SAT 87–93
[2020-10-30] MEDS: Heparin Sodium,Porcine 5,000 UNIT/ML VIAL 5000 UNIT SUBCUT ×3 (03:56→20:07)
[2020-10-30 06:59] LABS: MANUAL DIFF FLAG NO
[2020-10-30 07:11] LABS: Basophils Percent Auto 0.3 % (0-2); Hematocrit 42.4 % (37-47); Hemoglobin 13.9 g/dl (12.0-16.0); Imm Gran Pct Auto 4.9 % (0.0-0.4); Lymphocytes Percent Auto 7.9 % (20-40); Mean Corpuscular HGB Conc 32.8 g/dl (31.0-35.0); Mean Corpuscular Hemoglobin 29.7 pg (27.0-33.0); Mean Corpuscular Volume 90.6 fL (80-98); Mean Platelet Volume 9.9 fL (9.4-12.3); Monocytes Absolute Auto 0.8 X10*3/uL (0.1-1.2); Monocytes Percent Auto 6.7 % (2-11); NRBC Pct Auto 0.2 /100WBC (0.0-0.2); Neutrophils Absolute Auto 9.9 X10*3/uL (2.0-8.3); Neutrophils Percent Auto 80.2 % (45-73); Platelet Count 357 X10*3/uL (160-400); Red Blood Count 4.68 X10*6/uL (4.20-5.50); Red Cell Distribution Width 14.6 % (11.0-16.0); White Blood Count 12.3 X10*3/uL (4.8-10.8)
[2020-10-30 07:29] LABS: D Dimer 1010 NG/ML
[2020-10-30 07:30] LABS: Anion Gap 13 (12-20); Blood Urea Nitrogen 26 mg/dL (9-16); Calcium 8.1 mg/dL (8.4-10.2); Carbon Dioxide 24 mmol/L (22-29); Chloride 106 mmol/L (96-108); Creatinine Clr Calc Pharmacy 67.2; Estimated Glomerular Filt Rate > 60; Glucose Fasting 120 mg/dL (60-99); Lactate Dehydrogenase 415 U/L (122-220); Potassium 4.6 mmol/l (3.3-5.1); Sodium 138 mmol/L (135-145)
[2020-10-30] MEDS: Liothyronine Sodium 25 MCG TABLET PO (08:43)
[2020-10-30] MEDS: Aspirin Enteric Coated 325 MG TABLET.DR PO ×2 (08:43→20:07)
[2020-10-30] MEDS: dexAMETHasone sod phosphate 4 MG/ML VIAL 6 MG IVPUSH (08:44)
[2020-10-30] MEDS: Omeprazole 20 MG CAPSULE.DR PO (08:44)
[2020-10-30 10:46] LABS: C Reactive Protein 2.07 mg/dL (< or = 0.50)
--- NOTE | 2020-10-30 12:22 | HO.PM.IMPN ---
Subjective Subjective Date of Service: 10/30/20 Interval History: a little sob, but mostly ok Cardiovascular Cardiovascular: Reports no additional cardiovascular complaints Genitourinary Genitourinary: Reports no additional female genitourinary complaints Physical Exam Vital Signs: Vital Signs: Last Vital Signs Temp 98.4 F 10/30/20 11:26 Pulse 78 10/30/20 11:26 Resp 19 10/30/20 11:26 BP 108/55 L 10/30/20 11:26 Pulse Ox 92 10/30/20 11:26 Body Mass Index 33.7 General: AO X 3, no acute distress Resp: CTA bilateral CVS: S1,S2,RRR GI: soft, non tender, non distended Neuro: motor grossly intact Psych: appropriate affect Objective Data Current Medications Generic Name Dose Route Start Last Admin Trade Name Freq PRN Reason Stop Dose Admin Artificial Tears 2 drop 10/25/20 15:55 10/25/20 20:28 Artificial Tears 15 Ml Drops EYE-BOTH 2 drop Q4H PRN Administration Dryness Aspirin 325 mg 10/21/20 09:00 10/30/20 08:43 Aspirin Enteric Coated 325 Mg Tablet. PO 325 mg BID ARAM Administration Dexamethasone Sodium Phosphate 6 mg 10/21/20 09:00 10/30/20 08:44 Dexamethasone Sod Phosphate 4 Mg/Ml Vial IVPUSH 6 mg DAILY ARAM Administration Heparin Sodium (Porcine) 5,000 unit 10/21/20 04:00 10/30/20 11:30 Heparin Sodium,Porcine 5,000 Unit/Ml Vial SUBCUT 5,000 unit Q8H ARAM Administration Levothyroxine Sodium 150 mcg 10/21/20 21:00 10/29/20 19:49 Levothyroxine Sodium 150 Mcg Tablet PO 150 mcg BEDTIME ARAM Administration Liothyronine Sodium 25 mcg 10/21/20 09:00 10/30/20 08:43 Liothyronine Sodium 25 Mcg Tablet PO 25 mcg DAILY ARAM Administration Omeprazole 20 mg 10/21/20 09:00 10/30/20 08:44 Omeprazole 20 Mg Capsule. PO 20 mg DAILY ARAM Administration Labs CBC & Chem 7: 10/30/20 06:23 10/30/20 06:23 Microbiology Microbiology Results: Microbiology 10/20/20 22:55 Blood - Venous Blood Culture - Final No growth after 5 days. 10/20/20 22:09 Blood - Venous Blood Culture - Final No growth after 5 days. Assessment and Plan (1) Sepsis: Status: Acute (2) COVID-19: Status: Acute (3) Hypothyroid: Status: Acute (4) GERD (gastroesophageal reflux disease): Status: Acute (5) Acute respiratory failure with hypoxia: Status: Acute Assessment and Plan: 75/F with hypothyroidism, GERD here with acute hypoxic resp failure due to covid 19 w/ viral sepsis Covid 19, acute hypoxic respi failure, viral spsis poa requiring high flow which we are weaning, clinically look well -To complete Dexamethasone x 10, D10/10 -Seen by ID no indication for Remdesevir or Plasma Hypothyroid Synthroid GERD PPI Heparin for DVT prophylaxis
[2020-10-30] MEDS: Levothyroxine Sodium 150 MCG TABLET PO (20:07)
--- NOTE | 2020-10-30 23:54 | PC.NURSE ---
Pressure ulcer to coccyx stage 2 2cmx0.2 cm, pressure ulcer stage 1 to lt buttock, triad applied,air loss matress applied.
[2020-10-31] VITALS (11 sets, daily range): BP systolic 107–121; BP diastolic 55–60; PULSE 54–85; RESP 18–22; TEMP 35.9–37.2; O2SAT 87–94; BMI 33.7
[2020-10-31] MEDS: Heparin Sodium,Porcine 5,000 UNIT/ML VIAL 5000 UNIT SUBCUT ×3 (04:09→21:19)
[2020-10-31] MEDS: Aspirin Enteric Coated 325 MG TABLET.DR PO ×2 (09:08→21:19)
[2020-10-31] MEDS: Omeprazole 20 MG CAPSULE.DR PO (09:09)
[2020-10-31] MEDS: dexAMETHasone sod phosphate 4 MG/ML VIAL 6 MG IVPUSH (09:09)
[2020-10-31] MEDS: Liothyronine Sodium 25 MCG TABLET PO (09:09)
--- NOTE | 2020-10-31 10:50 | HO.PM.IMPN ---
Subjective Subjective Date of Service: 10/31/20 Interval History: unchagned Cardiovascular Cardiovascular: Reports no additional cardiovascular complaints Gastrointestinal Gastrointestinal: Reports no additional gastrointestinal complaints Physical Exam Vital Signs: Vital Signs: Last Vital Signs Temp 98.5 F 10/31/20 08:00 Pulse 62 10/31/20 08:00 Resp 20 10/31/20 08:00 BP 107/55 L 10/31/20 08:00 Pulse Ox 92 10/31/20 08:00 Body Mass Index 33.7 General: AO X 3, no acute distress Resp: CTA bilateral CVS: S1,S2,RRR GI: soft, non tender, non distended Neuro: motor grossly intact Psych: appropriate affect Objective Data Current Medications Generic Name Dose Route Start Last Admin Trade Name Freq PRN Reason Stop Dose Admin Artificial Tears 2 drop 10/25/20 15:55 10/25/20 20:28 Artificial Tears 15 Ml Drops EYE-BOTH 2 drop Q4H PRN Administration Dryness Aspirin 325 mg 10/21/20 09:00 10/31/20 09:08 Aspirin Enteric Coated 325 Mg Tablet. PO 325 mg BID ARAM Administration Dexamethasone Sodium Phosphate 6 mg 10/21/20 09:00 10/31/20 09:09 Dexamethasone Sod Phosphate 4 Mg/Ml Vial IVPUSH 6 mg DAILY ARAM Administration Heparin Sodium (Porcine) 5,000 unit 10/21/20 04:00 10/31/20 04:09 Heparin Sodium,Porcine 5,000 Unit/Ml Vial SUBCUT 5,000 unit Q8H ARAM Administration Levothyroxine Sodium 150 mcg 10/21/20 21:00 10/30/20 20:07 Levothyroxine Sodium 150 Mcg Tablet PO 150 mcg BEDTIME ARAM Administration Liothyronine Sodium 25 mcg 10/21/20 09:00 10/31/20 09:09 Liothyronine Sodium 25 Mcg Tablet PO 25 mcg DAILY ARAM Administration Omeprazole 20 mg 10/21/20 09:00 10/31/20 09:09 Omeprazole 20 Mg Capsule. PO 20 mg DAILY AARM Administration Labs CBC & Chem 7: 10/30/20 06:23 10/30/20 06:23 Microbiology Microbiology Results: Microbiology 10/20/20 22:55 Blood - Venous Blood Culture - Final No growth after 5 days. 10/20/20 22:09 Blood - Venous Blood Culture - Final No growth after 5 days. Assessment and Plan (1) Sepsis: Status: Acute (2) COVID-19: Status: Acute (3) Hypothyroid: Status: Acute (4) GERD (gastroesophageal reflux disease): Status: Acute (5) Acute respiratory failure with hypoxia: Status: Acute Assessment and Plan: 75/F with hypothyroidism, GERD here with acute hypoxic resp failure due to covid 19 w/ viral sepsis Covid 19, acute hypoxic respiratory failure, viral sepsis, conitnuing to need high flow completed Dexamethasone x 10 days on 10/30/2020 -Seen by ID no indication for Remdesevir or Plasma Hypothyroid Synthroid GERD PPI Heparin for DVT prophylaxis
--- NOTE | 2020-10-31 13:29 | MHC.CLN ---
RE: CONSULT RECOMMEND TO START JOHN AND ENSURE BID TO PROMOTE WOUND HEALING
--- NOTE | 2020-10-31 14:42 | MHC.CM.PN ---
FEMALE 75 DX COVID+. LOS r/t NEED FOR SUPPLEMENTAL OXYGEN, [facility]. DP Home w [facility] family will provide transportation. CM WILL FOLLOW.
[2020-10-31] MEDS: Levothyroxine Sodium 150 MCG TABLET PO (21:19)
[2020-11-01] VITALS (13 sets, daily range): BP systolic 90–139; BP diastolic 58–77; PULSE 55–92; RESP 17–22; TEMP 36.3–37; O2SAT 90–95
[2020-11-01] MEDS: Heparin Sodium,Porcine 5,000 UNIT/ML VIAL 5000 UNIT SUBCUT ×3 (05:29→20:16)
[2020-11-01] MEDS: Aspirin Enteric Coated 325 MG TABLET.DR PO ×2 (09:39→20:17)
[2020-11-01] MEDS: Omeprazole 20 MG CAPSULE.DR PO (09:39)
[2020-11-01] MEDS: Liothyronine Sodium 25 MCG TABLET PO (09:39)
--- NOTE | 2020-11-01 10:51 | HO.PM.IMPN ---
Subjective Subjective Date of Service: 11/01/20 Interval History: about the same Cardiovascular Cardiovascular: Reports no additional cardiovascular complaints Gastrointestinal Gastrointestinal: Reports no additional gastrointestinal complaints Physical Exam Vital Signs: Vital Signs: Last Vital Signs Temp 97.7 F 11/01/20 07:55 Pulse 63 11/01/20 07:55 Resp 22 H 11/01/20 08:17 BP 127/61 11/01/20 07:55 Pulse Ox 90 L 11/01/20 07:55 Body Mass Index 33.7 General: AO X 3, no acute distress Resp: dminished CVS: S1,S2,RRR GI: soft, non tender, non distended Neuro: motor grossly intact Psych: appropriate affect Objective Data Current Medications Generic Name Dose Route Start Last Admin Trade Name Freq PRN Reason Stop Dose Admin Artificial Tears 2 drop 10/25/20 15:55 10/25/20 20:28 Artificial Tears 15 Ml Drops EYE-BOTH 2 drop Q4H PRN Administration Dryness Aspirin 325 mg 10/21/20 09:00 11/01/20 09:39 Aspirin Enteric Coated 325 Mg Tablet. PO 325 mg BID ARAM Administration Heparin Sodium (Porcine) 5,000 unit 10/21/20 04:00 11/01/20 05:29 Heparin Sodium,Porcine 5,000 Unit/Ml Vial SUBCUT 5,000 unit Q8H ARAM Administration Levothyroxine Sodium 150 mcg 10/21/20 21:00 10/31/20 21:19 Levothyroxine Sodium 150 Mcg Tablet PO 150 mcg BEDTIME ARAM Administration Liothyronine Sodium 25 mcg 10/21/20 09:00 11/01/20 09:39 Liothyronine Sodium 25 Mcg Tablet PO 25 mcg DAILY ARAM Administration Omeprazole 20 mg 10/21/20 09:00 11/01/20 09:39 Omeprazole 20 Mg Capsule. PO 20 mg DAILY ARAM Administration Labs CBC & Chem 7: 10/30/20 06:23 10/30/20 06:23 Microbiology Microbiology Results: Microbiology 10/20/20 22:55 Blood - Venous Blood Culture - Final No growth after 5 days. 10/20/20 22:09 Blood - Venous Blood Culture - Final No growth after 5 days. Assessment and Plan (1) Sepsis: Status: Acute (2) COVID-19: Status: Acute (3) Hypothyroid: Status: Acute (4) GERD (gastroesophageal reflux disease): Status: Acute (5) Acute respiratory failure with hypoxia: Status: Acute Assessment and Plan: 75/F with hypothyroidism, GERD here with acute hypoxic resp failure due to covid 19 w/ viral sepsis Covid 19, acute hypoxic respiratory failure, viral sepsis, completed Dexamethasone x 10 days on 10/30/2020 -Seen by ID no indication for Remdesevir or Plasma continues to require high flow, and desaturating on mild exertion, but remains minimally symptomatic Hypothyroid Synthroid GERD PPI Heparin for DVT prophylaxis
--- NOTE | 2020-11-01 14:42 | PC.NURSE ---
pt no complaints this morning and afternoon. Continues on high rupinder - pt desat to 82-85% when gets out of bed to commode- takes ~2min to recover and get sat back up. Pt has stage I and II on buttocks/coccyx- pics in chart- pt encouraged to continue w/freq repo and barrier cream - pt agreeable. Pt using IS - ~1750 volume when using. pt very compliant with this - sets alarm on phone to remind her, RN supported and encouraged to keep contuning to do exercises and deep breathing /coughing. No other significant events at this time today. Will continue w.current plan
[2020-11-01] MEDS: Levothyroxine Sodium 150 MCG TABLET PO (20:17)
[2020-11-02] VITALS (11 sets, daily range): BP systolic 100–107; BP diastolic 50–57; PULSE 58–91; RESP 18–20; TEMP 35.8–36.9; O2SAT 90–93
[2020-11-02] MEDS: Heparin Sodium,Porcine 5,000 UNIT/ML VIAL 5000 UNIT SUBCUT ×3 (05:33→19:35)
[2020-11-02] MEDS: Omeprazole 20 MG CAPSULE.DR PO (07:54)
[2020-11-02] MEDS: Aspirin Enteric Coated 325 MG TABLET.DR PO ×2 (07:54→19:36)
[2020-11-02] MEDS: Liothyronine Sodium 25 MCG TABLET PO (07:54)
--- NOTE | 2020-11-02 09:34 | HO.PM.IMPN ---
Subjective Subjective Date of Service: 11/02/20 Interval History: less tightness Cardiovascular Cardiovascular: Reports no additional cardiovascular complaints Gastrointestinal Gastrointestinal: Reports no additional gastrointestinal complaints Physical Exam Vital Signs: Vital Signs: Last Vital Signs Temp 97.3 F 11/02/20 08:00 Pulse 88 11/02/20 08:00 Resp 20 11/02/20 08:00 BP 101/57 L 11/02/20 03:51 Pulse Ox 92 11/02/20 09:17 Body Mass Index 33.7 General: AO X 3, no acute distress Resp: diminished CVS: S1,S2,RRR GI: soft, non tender, non distended Neuro: motor grossly intact Psych: appropriate affect Objective Data Current Medications Generic Name Dose Route Start Last Admin Trade Name Freq PRN Reason Stop Dose Admin Artificial Tears 2 drop 10/25/20 15:55 10/25/20 20:28 Artificial Tears 15 Ml Drops EYE-BOTH 2 drop Q4H PRN Administration Dryness Aspirin 325 mg 10/21/20 09:00 11/02/20 07:54 Aspirin Enteric Coated 325 Mg Tablet. PO 325 mg BID ARAM Administration Heparin Sodium (Porcine) 5,000 unit 10/21/20 04:00 11/02/20 05:33 Heparin Sodium,Porcine 5,000 Unit/Ml Vial SUBCUT 5,000 unit Q8H ARAM Administration Levothyroxine Sodium 150 mcg 10/21/20 21:00 11/01/20 20:17 Levothyroxine Sodium 150 Mcg Tablet PO 150 mcg BEDTIME ARAM Administration Liothyronine Sodium 25 mcg 10/21/20 09:00 11/02/20 07:54 Liothyronine Sodium 25 Mcg Tablet PO 25 mcg DAILY ARAM Administration Omeprazole 20 mg 10/21/20 09:00 11/02/20 07:54 Omeprazole 20 Mg Capsule. PO 20 mg DAILY ARAM Administration Labs CBC & Chem 7: 10/30/20 06:23 10/30/20 06:23 Microbiology Microbiology Results: Microbiology 10/20/20 22:55 Blood - Venous Blood Culture - Final No growth after 5 days. 10/20/20 22:09 Blood - Venous Blood Culture - Final No growth after 5 days. Assessment and Plan (1) Sepsis: Status: Acute (2) COVID-19: Status: Acute (3) Hypothyroid: Status: Acute (4) GERD (gastroesophageal reflux disease): Status: Acute (5) Acute respiratory failure with hypoxia: Status: Acute Assessment and Plan: 75/F with hypothyroidism, GERD here with acute hypoxic resp failure due to covid 19 w/ viral sepsis Covid 19, acute hypoxic respiratory failure, viral sepsis, completed Dexamethasone x 10 days on 10/30/2020 -Seen by ID no indication for Remdesevir or Plasma continues to require high flow, and desaturating on mild exertion, but remains minimally symptomatic, feels even better today, will wean as tolerated Hypothyroid Synthroid GERD PPI Heparin for DVT prophylaxis
--- NOTE | 2020-11-02 14:11 | MHC.CM.PN ---
DP HOME WITH [facility]. DTR WILL PROVIDE TRANSPORTATION. LOS R/T NEED [facility] SUPPLEMENTAL OXYGEN. MAY NEED HOME O2. CM WILL FOLLOW.
[2020-11-02] MEDS: Artificial Tears 15 ML DROPS 2 DROP EYE-BOTH (16:09)
[2020-11-02] MEDS: Levothyroxine Sodium 150 MCG TABLET PO (19:36)
[2020-11-03] VITALS (12 sets, daily range): BP systolic 96–121; BP diastolic 55–78; PULSE 77–102; RESP 18–20; TEMP 36.1–37.1; O2SAT 90–95
[2020-11-03] MEDS: Heparin Sodium,Porcine 5,000 UNIT/ML VIAL 5000 UNIT SUBCUT ×3 (03:44→21:51)
[2020-11-03 06:43] LABS: MANUAL DIFF FLAG NO
[2020-11-03 07:00] LABS: Basophils Percent Auto 0.4 % (0-2); Eosinophils Absolute Auto 0.1 X10*3/uL (0.0-0.4); Eosinophils Percent Auto 1.6 % (0-4); Hematocrit 40.4 % (37-47); Imm Gran Abs Auto 0.29 X10*3/uL (0.00-0.03); Imm Gran Pct Auto 3.4 % (0.0-0.4); Lymphocytes Absolute Auto 2.2 X10*3/uL (1.2-4.9); Lymphocytes Percent Auto 25.8 % (20-40); Mean Corpuscular HGB Conc 32.2 g/dl (31.0-35.0); Mean Corpuscular Hemoglobin 29.4 pg (27.0-33.0); Mean Corpuscular Volume 91.4 fL (80-98); Mean Platelet Volume 10.6 fL (9.4-12.3); Monocytes Absolute Auto 0.9 X10*3/uL (0.1-1.2); Neutrophils Percent Auto 58.8 % (45-73); Platelet Count 195 X10*3/uL (160-400); Red Blood Count 4.42 X10*6/uL (4.20-5.50); Red Cell Distribution Width 15.1 % (11.0-16.0); White Blood Count 8.6 X10*3/uL (4.8-10.8)
[2020-11-03 07:03] LABS: D Dimer 976 NG/ML
[2020-11-03 07:21] LABS: Anion Gap 12 (12-20); Blood Urea Nitrogen 24 mg/dL (9-16); C Reactive Protein 0.75 mg/dL (< or = 0.50); Calcium 7.8 mg/dL (8.4-10.2); Carbon Dioxide 25 mmol/L (22-29); Chloride 106 mmol/L (96-108); Creatinine Clr Calc Pharmacy 64.1; Estimated Glomerular Filt Rate > 60; Glucose Fasting 100 mg/dL (60-99); Lactate Dehydrogenase 273 U/L (122-220); Potassium 4.6 mmol/l (3.3-5.1); Sodium 138 mmol/L (135-145)
[2020-11-03] MEDS: Aspirin Enteric Coated 325 MG TABLET.DR PO ×2 (07:41→21:52)
[2020-11-03] MEDS: Liothyronine Sodium 25 MCG TABLET PO (07:41)
[2020-11-03] MEDS: Omeprazole 20 MG CAPSULE.DR PO (07:41)
--- NOTE | 2020-11-03 12:44 | MHC.CLN ---
F/U 75-100% PO INTAKE DIET RX: REGULAR-APPROPRIATE PT RECEIVING JOHN AND ENSURE FOR WOUND HEALING FOLLOWING
[2020-11-03] MEDS: Levothyroxine Sodium 150 MCG TABLET PO (21:52)
[2020-11-04] VITALS (9 sets, daily range): BP systolic 98–131; BP diastolic 50–63; PULSE 69–107; RESP 18–20; TEMP 36.3–36.9; O2SAT 92–96
[2020-11-04] MEDS: Heparin Sodium,Porcine 5,000 UNIT/ML VIAL 5000 UNIT SUBCUT ×3 (03:22→20:23)
[2020-11-04] MEDS: Omeprazole 20 MG CAPSULE.DR PO (09:36)
[2020-11-04] MEDS: Aspirin Enteric Coated 325 MG TABLET.DR PO ×2 (09:36→20:23)
[2020-11-04] MEDS: Liothyronine Sodium 25 MCG TABLET PO (09:36)
--- NOTE | 2020-11-04 11:22 | HO.PM.IMPN ---
Subjective Subjective Date of Service: 11/04/20 Interval History: improved Cardiovascular Cardiovascular: Reports no additional cardiovascular complaints Respiratory Respiratory: Reports no additional respiratory complaints Physical Exam Vital Signs: Vital Signs: Last Vital Signs Temp 97.4 F 11/04/20 11:14 Pulse 84 11/04/20 11:14 Resp 18 11/04/20 11:14 BP 105/52 L 11/04/20 11:14 Pulse Ox 95 11/04/20 11:14 Body Mass Index 33.7 General: AO X 3, no acute distress Resp: CTA bilateral CVS: S1,S2,RRR GI: soft, non tender, non distended Neuro: motor grossly intact Psych: appropriate affect Objective Data Current Medications Generic Name Dose Route Start Last Admin Trade Name Freq PRN Reason Stop Dose Admin Artificial Tears 2 drop 10/25/20 15:55 11/02/20 16:09 Artificial Tears 15 Ml Drops EYE-BOTH 2 drop Q4H PRN Administration Dryness Aspirin 325 mg 10/21/20 09:00 11/04/20 09:36 Aspirin Enteric Coated 325 Mg Tablet. PO 325 mg BID ARAM Administration Heparin Sodium (Porcine) 5,000 unit 10/21/20 04:00 11/04/20 03:22 Heparin Sodium,Porcine 5,000 Unit/Ml Vial SUBCUT 5,000 unit Q8H ARAM Administration Levothyroxine Sodium 150 mcg 10/21/20 21:00 11/03/20 21:52 Levothyroxine Sodium 150 Mcg Tablet PO 150 mcg BEDTIME ARAM Administration Liothyronine Sodium 25 mcg 10/21/20 09:00 11/04/20 09:36 Liothyronine Sodium 25 Mcg Tablet PO 25 mcg DAILY ARAM Administration Omeprazole 20 mg 10/21/20 09:00 11/04/20 09:36 Omeprazole 20 Mg Capsule. PO 20 mg DAILY ARAM Administration Labs CBC & Chem 7: 11/03/20 06:12 11/03/20 06:12 Microbiology Microbiology Results: Microbiology 10/20/20 22:55 Blood - Venous Blood Culture - Final No growth after 5 days. 10/20/20 22:09 Blood - Venous Blood Culture - Final No growth after 5 days. Assessment and Plan (1) Sepsis: Status: Acute (2) COVID-19: Status: Acute (3) Hypothyroid: Status: Acute (4) GERD (gastroesophageal reflux disease): Status: Acute (5) Acute respiratory failure with hypoxia: Status: Acute Assessment and Plan: 75/F with hypothyroidism, GERD here with acute hypoxic resp failure due to covid 19 w/ viral sepsis Covid 19, acute hypoxic respiratory failure, viral sepsis, completed Dexamethasone x 10 days on 10/30/2020 Seen by ID no indication for Remdesevir or Plasma was able to be weaned from high flow to NC with oxymizer today continue to wean as tolerated, i suspect patient has some baseline chronic hypoxia due to COPD Hypothyroid Synthroid GERD PPI Heparin for DVT prophylaxis
[2020-11-04] MEDS: Levothyroxine Sodium 150 MCG TABLET PO (20:23)
[2020-11-05] VITALS (7 sets, daily range): BP systolic 99–126; BP diastolic 51–60; PULSE 87–100; RESP 18–22; TEMP 36.5–37.1; O2SAT 91–95
[2020-11-05] MEDS: Heparin Sodium,Porcine 5,000 UNIT/ML VIAL 5000 UNIT SUBCUT ×3 (04:52→20:37)
[2020-11-05] MEDS: Liothyronine Sodium 25 MCG TABLET PO (08:11)
[2020-11-05] MEDS: Aspirin Enteric Coated 325 MG TABLET.DR PO ×2 (08:11→20:38)
[2020-11-05] MEDS: Omeprazole 20 MG CAPSULE.DR PO (08:12)
--- NOTE | 2020-11-05 14:29 | MHC.CLN ---
F/U PO INTAKE REMAINS GOOD DIET RX: REGULAR-APPROPRIATE PT RECEIVING JOHN AND ENSURE FOR WOUND HEALING ONE HEALED, ONE REMAINS FOLLOWING
--- NOTE | 2020-11-05 16:39 | HO.PM.IMPN ---
Subjective Subjective Date of Service: 11/05/20 Interval History: Patient being followed for COVID-19 infection and respiratory failure, patient feeling better this morning, offers no acute symptoms. Review of Systems General no headache, no dizziness, no fever, chills. CVS no chest pain, no palpitation. Respiratory no cough, no sputum production, no respiratory distress. Gastrointestinal no nausea, no vomiting, no abdominal pain Physical Exam Vital Signs: Vital Signs: Last Vital Signs Temp 98.8 F 11/05/20 15:18 Pulse 96 11/05/20 15:18 Resp 18 11/05/20 15:18 BP 114/55 L 11/05/20 15:18 Pulse Ox 94 11/05/20 15:18 Body Mass Index 33.7 General patient resting comfortably, no acute distress. Neck is supple no JVD. CVS regular rate rhythm, Respiratory lungs clear to auscultation, no respiratory distress. Gastrointestinal abdomen soft, nontender, bowel sounds audible, no guarding , no rigidity. Extremities no clubbing, cyanosis or edema. Neuro nonfocal, speech clear. Skin no rash Objective Data Current Medications Generic Name Dose Route Start Last Admin Trade Name Freq PRN Reason Stop Dose Admin Artificial Tears 2 drop 10/25/20 15:55 11/02/20 16:09 Artificial Tears 15 Ml Drops EYE-BOTH 2 drop Q4H PRN Administration Dryness Aspirin 325 mg 10/21/20 09:00 11/05/20 08:11 Aspirin Enteric Coated 325 Mg Tablet. PO 325 mg BID ARAM Administration Heparin Sodium (Porcine) 5,000 unit 10/21/20 04:00 11/05/20 13:38 Heparin Sodium,Porcine 5,000 Unit/Ml Vial SUBCUT 5,000 unit Q8H ARAM Administration Levothyroxine Sodium 150 mcg 10/21/20 21:00 11/04/20 20:23 Levothyroxine Sodium 150 Mcg Tablet PO 150 mcg BEDTIME ARAM Administration Liothyronine Sodium 25 mcg 10/21/20 09:00 11/05/20 08:11 Liothyronine Sodium 25 Mcg Tablet PO 25 mcg DAILY ARAM Administration Omeprazole 20 mg 10/21/20 09:00 11/05/20 08:12 Omeprazole 20 Mg Capsule. PO 20 mg DAILY ARAM Administration Labs CBC & Chem 7: 11/03/20 06:12 11/03/20 06:12 Microbiology Microbiology Results: Microbiology 10/20/20 22:55 Blood - Venous Blood Culture - Final No growth after 5 days. 10/20/20 22:09 Blood - Venous Blood Culture - Final No growth after 5 days. Assessment and Plan (1) COVID-19: Status: Acute (2) Acute respiratory failure with hypoxia: Status: Acute (3) Sepsis: Status: Acute (4) GERD (gastroesophageal reflux disease): Status: Acute (5) Hypothyroid: Status: Acute Assessment and Plan: 75/F with hypothyroidism, GERD here with acute hypoxic resp failure due to covid 19 w/ viral sepsis Covid 19, acute hypoxic respiratory failure, viral sepsis, completed Dexamethasone x 10 days on 10/30/2020 Seen by ID no indication for Remdesevir or Plasma,was able to be weaned from high flow to NC , currently on 6 L of oxygen with finger oximetry 95%, will continue to wean as tolerated, patient denies history of COPD but has history of on and off smoking, once patient down to 3 of 4 L of oxygen will obtain home O2 eval, encourage incentive spirometry out of bed and ambulation Hypothyroid Synthroid GERD PPI Heparin for DVT prophylaxis
[2020-11-05] MEDS: Levothyroxine Sodium 150 MCG TABLET PO (20:38)
[2020-11-06] VITALS: BP 101/51; PULSE 85; RESP 16; TEMP 36.8; O2SAT 95
[2020-11-06 04:00] VITALS: BP 108/52; PULSE 79; RESP 16; TEMP 36.8; O2SAT 94
[2020-11-06] MEDS: Heparin Sodium,Porcine 5,000 UNIT/ML VIAL 5000 UNIT SUBCUT (04:41)
[2020-11-06] MEDS: Aspirin Enteric Coated 325 MG TABLET.DR PO (08:18)
[2020-11-06] MEDS: Omeprazole 20 MG CAPSULE.DR PO (08:18)
[2020-11-06] MEDS: Liothyronine Sodium 25 MCG TABLET PO (08:18)
[2020-11-06 08:23] VITALS: BP 107/54; PULSE 84; RESP 18; TEMP 36.6; O2SAT 93
[2020-11-06 10:49] VITALS: PULSE 105; PULSE 110; O2SAT 86; O2SAT 91
--- NOTE | 2020-11-06 11:49 | MHC.CM.PN ---
IMM 11/06/2020 DC TODAY WITH NEW OXYGEN AND [facility]. JEAN IS O2 PROVIDER. HER SON IS PROVING TRANSPORTATION.
[2020-11-06 11:57] VITALS: BP 96/49; PULSE 92; RESP 18; TEMP 36.7; O2SAT 93
--- NOTE | 2020-11-06 13:43 | P.DS_ITS ---
DS: Providers Provider Date of admission: 10/21/20 00:41 Primary care physician: Unknown Physician Consults: 10/21/20 03:40 Consult to Infectious Diseases Routine Consulting Provider: Amy Phillips Reason for consultation: covid infection Has provider been notified: No DS: Diagnosis Discharge Diagnosis (1) COVID-19: Status: Acute (2) Acute respiratory failure with hypoxia: Status: Acute (3) Sepsis: Status: Acute (4) GERD (gastroesophageal reflux disease): Status: Acute (5) Hypothyroid: Status: Acute DS: Medications Discharge Medications Home Medications: Home Medications Medication Instructions Recorded Confirmed levothyroxine 1 tab PO BEDTIME 10/21/20 10/21/20 liothyronine 1 tab PO DAILY 10/21/20 10/21/20 pantoprazole 1 tab PO DAILY 10/21/20 10/21/20 DS: Summary Hospital Course Hospital Course: History of presenting illness Chief Complaint: SOB / Malaise 75 y/o female with PMHX of Hypothyroidism and GERD who presented from home due to feeling malaise . Per history provided by the patient, 1 week ago was diagnosed of covid infection and since then has been isolated at home. Patient reports that for the past 2 days has not been feeling well. C/o Malaise, generalized weakness and feeling on and off episodes of headaches that started today as well as occasional dry cough. Patient denies any chest pain, SOB, nausea or vomiting. Patient has an oxymeter at home and noted today that her oxygen levels were in the 80's for what decided to come to the ED. On presentation patient was noted to be tachycardic, tachypneic with on and off episodes of fever of 102 and 100.8, Oxygen level of 86% on room air, LDH of 351, ferritin 442, CXR with patchy airspace opacities and Covid +. Patient was given one dose of Rocephin, Doxy and IV steroids and decision for admission was given. Patient was seen and examined at the bedside, laying down in bed in no acute distress. ROS as above otherwise negative. Physical exam unremarkable. PMHX: hypothyroidism and GERD PSX; pubic and sacral fracture, L4-5 fracture Hospital course 75/F with hypothyroidism, GERD admitted withacute hypoxic resp failure due to covid 19 w/ viral sepsis Covid 19, acute hypoxic respiratory failure, viral sepsis, patient completed Dexamethasone x 10 days on 10/30/2020 Seen by ID no indication for Remdesevir or Plasma,was able to be weaned from high flow to NC , patient denies history of COPD but has history of on and off smoking, CT chest shows moderate emphysema, home O2 eval. revealed hypoxia therefore patient is being discharged home on 1 L of oxygen at rest and 3 L of oxygen with ambulation patient is being discharged with VNA services, encourage to rest, drink fluids and continue activity as tolerated. Hypothyroid Continue Synthroid Time Spent with Patient Time attestation: Total time spent providing and/or coordinating discharge services: Physical Exam Vital Signs: Vital Signs: Last Vital Signs Temp 98.1 F 11/06/20 11:57 Pulse 92 11/06/20 11:57 Resp 18 11/06/20 11:57 BP 96/49 L 11/06/20 11:57 Pulse Ox 93 11/06/20 11:57 Body Mass Index 33.7 General patient resting comfortably in no acute distress. Neck is supple no JVD. CVS regular rate rhythm, Respiratory lungs clear to auscultation, no respiratory distress. Gastrointestinal abdomen soft, nontender, bowel sounds audible. Extremities no clubbing cyanosis or edema. Neuro nonfocal , speech clear. Skin no rash DS: Data Data Completed and Pending Labs on day of discharge: 10/20/20 21:13 ECG 12 lead EKG Stat EKG Documentation DIRECTED XR chest 1V Stat 10/20/20 21:30 dexAMETHasone sod phosphate [Decadron] 10 mg IVPUSH ONCE ONE 10/20/20 21:37 Acetaminophen [Tylenol] 650 mg PO ONCE ONE 10/20/20 22:09 B Type Natriuretic Peptide Stat D Dimer Stat Ferritin Stat Lactate Dehydrogenase Stat Lactic Acid Stat Prothrombin Time INR Stat Troponin-I High Sensitivity Stat 10/20/20 22:10 Basic Metabolic Panel Stat Complete Blood Count Auto Diff Stat Liver Panel Stat 10/20/20 22:11 SARS-CoV2/FLU/RSV Stat 10/20/20 22:55 Venous Blood Gas Stat Blood Culture X2 [BC] Stat 10/20/20 23:25 Doxycycline Hyclate [Vibramycin] 100 mg 0.9 % Sodium Chloride [Ns] 250 ml IV ONCE cefTRIAXone sodium [Rocephin] 1 gm 0.9 % Sodium Chloride [Ns] 50 ml IV ONCE 10/21/20 00:00 CT angio chest PE protocol Stat Resp pnl result confirmation Stat Respiratory Panel Stat 10/21/20 00:23 cefTRIAXone sodium [Rocephin] 1 gm .ROUTE .[facility] ONE 10/21/20 00:27 iohexoL 350 MG/ML [Omnipaque 350 MG/ML] 65 ml IV ONCE ONE 10/21/20 00:39 Transfer Order Routine 10/21/20 01:08 Doxycycline Hyclate [Vibramycin] 100 mg IV .[facility] ONE 10/21/20 01:45 0.9 % Sodium Chloride [Ns] 1,000 ml IVCONT 75 mls/hr 10/21/20 03:40 Oxygen administration Nasal Cannula 2 lpm 10/21/20 05:24 Basic Metabolic Panel Routine Complete Blood Count Auto Diff Routine 10/21/20 09:00 dexAMETHasone sod phosphate [Decadron] 6 mg IVPUSH DAILY 10/21/20 Breakfast Low Sodium Diet 10/21/20 21:29 Doxycycline Hyclate [Vibramycin] 100 mg IV .[facility] ONE 10/21/20 22:00 Doxycycline Hyclate [Vibramycin] 100 mg 0.9 % Sodium Chloride [Ns] 250 ml IV Q24H 10/21/20 23:00 cefTRIAXone sodium [Rocephin] 1 gm 0.9 % Sodium Chloride [Ns] 50 ml IV Q24H 10/21/20 23:57 cefTRIAXone sodium [Rocephin] 1 gm .ROUTE .[facility] ONE 10/22/20 06:00 methylPREDNISolone Sod Succ/PF [SOLU-MedroL] 40 mg IM Q24H 10/22/20 06:12 BMP [Basic Metabolic Panel Fasting] Routine Complete Blood Count Auto Diff Routine D Dimer Routine 10/22/20 16:00 Remdesivir [Veklury] 200 mg 0.9 % Sodium Chloride [Ns] 210 ml IV ONCE 10/23/20 05:36 BMP [Basic Metabolic Panel Fasting] Routine Complete Blood Count Auto Diff Routine D Dimer Routine 10/23/20 16:00 Remdesivir [Veklury] 100 mg 0.9 % Sodium Chloride [Ns] 230 ml IV Q24H 10/26/20 12:12 Basic Metabolic Panel Routine C Reactive Protein Routine Complete Blood Count no Diff Routine D Dimer Routine Lactate Dehydrogenase Routine 10/29/20 Lunch Regular Diet 10/30/20 06:23 BMP [Basic Metabolic Panel Fasting] Routine Complete Blood Count Auto Diff Routine D Dimer Routine Lactate Dehydrogenase Routine 10/30/20 10:09 CRP [C Reactive Protein] Routine 11/03/20 06:12 BMP [Basic Metabolic Panel Fasting] Routine C Reactive Protein Routine Complete Blood Count Auto Diff Routine D Dimer Routine Lactate Dehydrogenase Routine Laboratory Last Values WBC 8.6 X10*3/uL (4.8-10.8) 11/03/20 06:12 RBC 4.42 X10*6/uL (4.20-5.50) 11/03/20 06:12 Hgb 13.0 g/dl (12.0-16.0) 11/03/20 06:12 Hct 40.4 % (37-47) 11/03/20 06:12 MCV 91.4 fL (80-98) 11/03/20 06:12 MCH 29.4 pg (27.0-33.0) 11/03/20 06:12 MCHC 32.2 g/dl (31.0-35.0) 11/03/20 06:12 RDW 15.1 % (11.0-16.0) 11/03/20 06:12 Plt Count 195 X10*3/uL (160-400) D 11/03/20 06:12 MPV 10.6 fL (9.4-12.3) 11/03/20 06:12 Immature Gran % (Auto) 3.4 % (0.0-0.4) H 11/03/20 06:12 Neut % (Auto) 58.8 % (45-73) 11/03/20 06:12 Lymph % (Auto) 25.8 % (20-40) 11/03/20 06:12 [place] % (Auto) 10.0 % (2-11) 11/03/20 06:12 Eos % (Auto) 1.6 % (0-4) 11/03/20 06:12 Baso % (Auto) 0.4 % (0-2) 11/03/20 06:12 Lymph # (Auto) 2.2 X10*3/uL (1.2-4.9) 11/03/20 06:12 [place] # (Auto) 0.9 X10*3/uL (0.1-1.2) 11/03/20 06:12 Eos # (Auto) 0.1 X10*3/uL (0.0-0.4) 11/03/20 06:12 Baso # (Auto) 0.0 X10*3/uL (0.0-0.2) 11/03/20 06:12 Abs Immat Gran (auto) 0.29 X10*3/uL (0.00-0.03) H 11/03/20 06:12 Absolute Neuts (auto) 5.0 X10*3/uL (2.0-8.3) 11/03/20 06:12 Absolute Nucleated RBC 0.000 X10*3/uL (0.0-0.012) 11/03/20 06:12 Nucleated RBC % (auto) 0.0 /100WBC (0.0-0.2) 11/03/20 06:12 PT 12.1 SEC (10.8-13.0) 10/20/20 22:09 INR 1.0 (0.9-1.1) 10/20/20 22:09 D-Dimer 976 NG/ML 11/03/20 06:12 VBG pH 7.34 (7.32-7.43) 10/20/20 22:55 VBG pCO2 49 mmhg 10/20/20 22:55 VBG pO2 29 mmhg 10/20/20 22:55 VBG HCO3 26 mmol/L 10/20/20 22:55 VBG O2 Saturation 50.7 % 10/20/20 22:55 VBG Base Excess -0.6 mmol/L 10/20/20 22:55 Sodium 138 mmol/L (135-145) 11/03/20 06:12 Potassium 4.6 mmol/l (3.3-5.1) 11/03/20 06:12 Chloride 106 mmol/L (96-108) 11/03/20 06:12 Carbon Dioxide 25 mmol/L (22-29) 11/03/20 06:12 Anion Gap 12 (-20) 11/03/20 06:12 BUN 24 mg/dL (9-16) H 11/03/20 06:12 Creatinine 0.85 mg/dL (0.5-1.4) 11/03/20 06:12 Estim Creat Clear Calc 64.1 11/03/20 06:12 Estimated GFR > 60 11/03/20 06:12 Random Glucose 168 mg/dL (60-115) H 10/26/20 12:12 Fasting Glucose 100 mg/dL (60-99) H 11/03/20 06:12 Lactic Acid 0.9 mmol/L (0.5-2.0) 10/20/20 22:09 Calcium 7.8 mg/dL (8.4-10.2) L 11/03/20 06:12 Ferritin 442 ng/mL (10-250) H 10/20/20 22:09 Total Bilirubin 0.3 mg/dL (0.0-1.0) 10/20/20 22:10 Direct Bilirubin 0.2 mg/dL (0.0-0.5) 10/20/20 22:10 AST 31 U/L (5-31) 10/20/20 22:10 ALT 20 U/L (0-31) 10/20/20 22:10 Alkaline Phosphatase 61 U/L (39-117) 10/20/20 22:10 Lactate Dehydrogenase 273 U/L (122-220) H 11/03/20 06:12 Troponin I High Sens 3.6 ng/L (<3.5-17.0) 10/20/20 22:09 C-Reactive Protein 0.75 mg/dL (< or = 0.50) H 11/03/20 06:12 C-React Prot High Sens Cancelled 10/30/20 06:23 B-Natriuretic Peptide < 10 pg/mL (<100) 10/20/20 22:09 Total Protein 7.0 g/dL (6.5-8.0) 10/20/20 22:10 Albumin 4.0 g/dL (3.5-5.0) 10/20/20 22:10 Respiratory Panel [place] See Note 10/21/20 Unknown Adenovirus (Rapid PCR) Not Detected (Not Detect.) 10/21/20 Unknown B.pert (TEM-PCR) Not Detected (Not Detect.) 10/21/20 Unknown B.parapertussis DNA PCR Not Detected (Not Detect.) 10/21/20 Unknown C. pneumoniae DNA (PCR) Not Detected (Not Detect.) 10/21/20 Unknown Coronavirus (PCR) POSITIVE (Negative) A 10/20/20 22:11 Coronavirus OC43 (PCR) Not Detected (Not Detect.) 10/21/20 Unknown Coronavirus HKU1 (PCR) Not Detected (Not Detect.) 10/21/20 Unknown Coronavirus 229E (PCR) Not Detected (Not Detect.) 10/21/20 Unknown Coronavirus NL63 (PCR) Not Detected (Not Detect.) 10/21/20 Unknown Human Metapneumovir PCR Not Detected (Not Detect.) 10/21/20 Unknown Influenza A (RT-PCR) Not Detected (Not Detect.) 10/21/20 Unknown Influenza Type A (PCR) NEGATIVE (Negative) 10/20/20 22:11 Influenza B (RT-PCR) Not Detected (Not Detect.) 10/21/20 Unknown Influenza Type B (PCR) NEGATIVE (Negative) 10/20/20 22:11 M. pneumoniae (PCR) Not Detected (Not Detect.) 10/21/20 Unknown Parainfluenza 1 (PCR) Not Detected (Not Detect.) 10/21/20 Unknown Parainfluenza 2 (PCR) Not Detected (Not Detect.) 10/21/20 Unknown Parainfluenza 3 (PCR) Not Detected (Not Detect.) 10/21/20 Unknown Parainfluenza 4 (PCR) Not Detected (Not Detect.) 10/21/20 Unknown RSV (PCR) Not Detected (Not Detect.) 10/21/20 Unknown RSV RNA Qual (PCR) NEGATIVE (Negative) 10/20/20 22:11 Entero/Rhino (PCR) Not Detected (Not Detect.) 10/21/20 Unknown SARS-CoV-2 RNA (RT-PCR) Detected (Not Detect.) A 10/21/20 Unknown Discharge Plan Discharge Patient Disposition: Home Health Service Referrals: Physician,Unknown [Primary Care Provider] - Discharge Medications: Continued liothyronine 5 mcg tablet 1 tab PO DAILY RF: 0 pantoprazole 40 mg tablet,delayed release (DR/EC) 1 tab PO DAILY RF: 0 levothyroxine 150 mcg tablet 1 tab PO BEDTIME RF: 0 Discontinued aspirin 325 mg tablet,delayed release (DR/EC) 1 tab PO BID RF: 0 Discharge Orders: Discharge Order (Routine); Ordered 11/06/20 Ordered By: Sean Lowry Diet: low fat, low cholesterol Activity on Discharge: As tolerated Visit Report Forms: Patient Portal Discharge page Care Plan Goals: Use home oxygen 1 L at rest and 3 L with activity, home oxygen is being arranged. Health Concerns: Continue activity as tolerated Plan of Treatment: Outpatient follow-up with primary care physician in 1 week
== END 2020-11-06 15:47 | disposition home health service (06) | DRG 871 ==
LOC: HO.ED 23:29 → HO.ICU 10-21 01:23 → HO.IMC 10-21 10:16
PROVIDERS: Internal Medicine; Admitting Provider Internal Medicine; Emergency Provider Internal Medicine; Visit Provider Hospitalist
DX: A41.89 Other specified sepsis (principal); U07.1 COVID-19; J96.01 Acute respiratory failure with hypoxia; K21.9 Gastro-esophageal reflux disease without esophagitis; E03.9 Hypothyroidism, unspecified; Z79.890 Hormone replacement therapy; Z79.899 Other long term (current) drug therapy
CPT/HCPCS: 0241U; 36415; 71045; 71275; 80048; 80076; 82728; 82803; 83605; 83615; 83880; 84484; 85025; 85027; 85379; 85610; 86140; 86141; 87040; 87633; 93005; 96365; 96367; 96375; 99285; J0696; J1100; J3490; Q9967